=== PATIENT | male | born 1945 | race Caucasian/White ===

== ENCOUNTER 2023-05-06 08:04 | Outpatient (CLI) | payer MEDICARE, BC, SELFPAY ==
--- NOTE | 2023-05-06 08:15 | MR_ITS ---
[address] [address] Phone:?[phone] Fax:?[phone] Referring Physician Information: Licha Jerome [address] [facility] [address] Phone:?[phone] Fax:?[phone] Patient:Ajit Jackson D.O.B:?1945 Sex:?Male Phone:?[phone] [facility] MRN:?[id number] Exam Date:?05/06/2023 EXAM: MRI of the RIGHT SHOULDER, without contrast CLINICAL INFORMATION: Male, 77 years old, with right shoulder pain after a fall. INDICATION: Evaluate for rotator cuff tear. PRIOR SURGERY: None reported. PLAIN FILMS: Shoulder radiographs dated 04/27/2023. COMPARISONS: No prior MRIs available. TECHNICAL INFORMATION: Using a 1.5T MR scanner and a localizing surface coil: coronal obliques: PD, T2, STIR sagittal obliques: PD, T2 axials: PD, T2 SEDATION: None CONTRAST: None FINDINGS: Bones: Proximal humerus: No fracture or marrow edema/pathology. No humeral Hill-Sachs or reverse Hill-Sachs lesion/impaction or contusion. Glenoid: No fracture or marrow edema/pathology. No osseous Bankart lesion. Rotator cuff and muscles/tendons: Supraspinatus: Full width, full-thickness tear of supraspinatus, tendon retraction to the mid humeral head and grade 2 muscle atrophy. Infraspinatus: Full width, full-thickness tear of infraspinatus, with 1.5 cm of tendon retraction and grade 1 muscle atrophy. Teres minor: Moderate edema-like signal is present within the superior aspect of the teres minor muscle belly, without muscle tear (sagittal T2 series 8 image 24). Subscapularis: Mild to moderate tendinopathy of the superior distal subscapularis, without tendon tear or muscle atrophy. Deltoid: No strain or atrophy. Coracoacromial arch: Acromion morphology: The acromion has type II morphology. No discrete subacromial osseous spur or os acromiale. Acromiohumeral space: The acromiohumeral space is within normal limits. Coracohumeral space: The coracohumeral space is within normal limits. Acromioclavicular joint: Joint: Moderate AC joint arthropathy, with 5 mm of inferior osteophytosis that effaces the underlying supraspinatus. Ligaments: Coracoclavicular ligaments are intact. Bursae: Subacromial-subdeltoid: Mild-moderate subacromial-subdeltoid bursitis. Subcoracoid: No convincing subcoracoid bursal thickening/bursitis. Biceps tendon: The long head of the biceps tendon is present within the bicipital groove. Marked tendinopathy and high-grade tearing of the intra- articular biceps long head tendon (sagittal PD series 7 images 12-19). Glenohumeral joint: Effusion/cyst: Mild glenohumeral joint effusion. Articular cartilage: Humeral head: Moderate thinning of the articular cartilage is present throughout the medial aspect of the humeral head with mild inferomedial marginal osteophytosis. Glenoid: Mild to moderate thinning of the glenoid articular cartilage, with minimal marginal osteophytosis. Loose bodies: No discrete intra-articular body within the joint. Labrum:?Circumferential degeneration and poorly defined fraying/tearing of the labrum, which is of doubtful clinical significance. Inferior glenohumeral ligament/axillary pouch:?Intact. The axillary pouch is normal in thickness and signal. No evidence of adhesive capsulitis or capsular injury. IMPRESSION: 1. Full-width, full-thickness tear of supraspinatus, with tendon retraction to the mid humeral head and grade 2 muscle atrophy. 2. Full width, full-thickness tear of infraspinatus, with 1.5 cm of tendon retraction and grade 1 muscle atrophy. 3. Marked tendinopathy and high-grade tearing of the intra-articular biceps long head tendon. 4. Mild-moderate subscapularis tendinopathy and a grade 1 strain of the teres minor muscle belly, without tear. 5. Mild osteoarthritis of the glenohumeral joint with a mild joint effusion. 6. Mild narrowing of the acromiohumeral space with mild/moderate subacromial- subdeltoid bursitis. Additionally, inferior osteophytosis from moderate AC joint arthropathy effaces the underlying supraspinatus. 7. Circumferential degeneration and poorly defined fraying/tearing of the labrum, which is of doubtful clinical significance. BC Electronically signed on 05/07/2023 9:35:00 AM by Lito Timmons M.D.
== END 2023-05-06 08:05 | disposition home or self-care (01) ==
LOC: MRI 08:06
PROVIDERS: PCP Family Medicine; Visit Provider Physician Assistant
DX: M25.511 Pain in right shoulder (principal); M75.101 Unspecified rotator cuff tear or rupture of right shoulder, not specified as traumatic; M19.011 Primary osteoarthritis, right shoulder; M25.411 Effusion, right shoulder; M75.51 Bursitis of right shoulder; S43.431A Superior glenoid labrum lesion of right shoulder, initial encounter
CPT/HCPCS: 73221

== ENCOUNTER 2023-05-25 09:00 | Outpatient (RCR) | payer MEDICARE, BC, SELFPAY ==
--- NOTE | 2023-05-12 07:28 | PT.OPEX ---
PT [facility] Eval PT [facility] Outpatient Eval Start: 05/11/23 08:15 Freq: Status: Active Protocol: Document 05/11/23 10:05 CRP (Rec: 05/11/23 15:36 CRP [id number]) E-signed By Ventura Littlejohn PT Physical Therapy Outpatient Evaluation Insurance Information Recert Due Date 08/09/23 Insurance Name Medicare B Medical Diagnosis Greater Trochanteric bursitis of the Right hip R shoulder pain Treating Diagnosis R hip pain Decreased R hip ROM R hip weakness R shoulder pain R shoulder loss of motion R shoulder weakness Subjective Subjective About 2 weeks ago the pt fell and landed on his R shoulder. Immediate severe R shoulder pain and loss of motion with some bruising. ROM was very limited. Maybe a little return of motion but still significantly limited. Sleep is limited as it's hard to find a comfortable position and he will wake with. Unable to use R UE for any normal daily function because he cannot lift the arm and there is sharp pain. Pt also co R lateral hip pain that started building about 8 weeks ago. No known reason for pain. Pain has gotten worse with time and he will limp. Going up and down steps is limited to one step at a time. Pain will radiate into the R thigh and go to the ankle. No numbness or tingling. Ankle pain with this is more within the last week. No LBP. Pain Comments 01/17 Current Work Status Retired Objective Range of Motion Shoulder AROM Flex 15 deg with pain Unable to raise into abduction Shoulder PROM Flex 95 ABd 80 ER WNL IR pain at 75 deg Trunk ROM Flex WNL Ext only to neutral at the lumbar spine Bilat SB min/mod dec BIlat rot min/mod dec Hip ROM L WNL R flex 100 ER 40 deg IR 8 deg Strength Poor core strength with trunk flex and ext Hip MMT Flex R 4-/5 Abd R 3+/5 Ext 4-/5 Palpation Palpable pain R lateral hip around greater trochanter and gluteus med and min Balance & Gait Shows antalgic gait on the R Other/Pertinent Objective ER de-rotation test painful SAAD painful lateral R hip Assessment Assessment/Impression Pt presents to the clinic with signs and sxs consistent with R shoulder rotator cuff tear and R hip greater trochanteric pain syndrome. Pts presentation is characterized by underlying issues of decreased trunk ROM, trunk weakness and loss of hip ROM. Skilled PT is necessary to incorporate ther ex, nm kenny, manual therapy and pt education to focus on improved strength and mobility of R hip with decreased pain. PT will wait on Drs appt with R shoulder to determine further plans in regards to treatment. Plan of Care Rehabilitation Potential Good Physical Therapy Goals 1. Pt will be independent with HEP in 6 weeks. 2. Pt will don doff clothing without c.o R shoulder pain in 12 weeks 3. Pt will walk without a limp or pain for exercise x 15 min in 12 weeks. Coordination/Communication With Referral Source Treatment Plan/Direct Interventions Gait Training,Joint Mobilization,Manual Therapy, Neuromuscular Re-ed,Self-Care/ Home Management,Therapeutic Activities,Therapeutic Exercises Frequency/Duration 1-2x/wk for 12 weeks Patient Will Be Discharged From Therapy Completion of LTG(s),Skills Plateau,Independent w/HEP, Independently Progressing Evaluation Billing Untimed Code Treatment Minutes 30 Complexity High Certification Information Initial Certification Date 05/11/23 Ending Certification Date 08/09/23 Provider Signature Shows Agreement With POC & Medical Necessity Physician Signature & Date Requested Please Sign/Date Here Physician Comment/Change : Physician NPI Number #
== END 2023-09-22 23:59 | disposition home or self-care (01) ==
PROVIDERS: PCP Family Medicine; Visit Provider Physician Assistant
DX: M70.61 Trochanteric bursitis, right hip (principal); M25.511 Pain in right shoulder; Z51.89 Encounter for other specified aftercare
CPT/HCPCS: 97110; 97140; 97163

== ENCOUNTER 2023-05-26 07:00 | Day surgery (SDC) | payer MEDICARE, BC, SELFPAY ==
[2023-05-26] VITALS (31 sets, daily range): BP systolic 99–164; BP diastolic 46–94; PULSE 7–88; RESP 12–20; TEMP 35.8–36.4; O2SAT 88–99; BMI 27.7
[2023-05-26] MEDS: ACETAMINOPHEN 500 MG TABLET 1000 MG PO (07:38)
[2023-05-26] MEDS: OXYCODONE (CR) 10 MG TAB.ER.12H PO (07:39)
[2023-05-26] MEDS: CELECOXIB 200 MG CAPSULE PO (07:39)
[2023-05-26] MEDS: SODIUM CHLORIDE 0.9 % (FLUSH) 10 ML SYRINGE IVF (07:48)
[2023-05-26] MEDS: LACTATED RINGERS 1000 ML 1,000 ML 100 ML IV ×2 (07:48→09:59)
[2023-05-26] MEDS: fentaNYL 100 MCG/2 ML inj IVP (08:03)
[2023-05-26] MEDS: MIDAZOLAM HCL 1 MG/ML inj IVP (08:03)
--- NOTE | 2023-05-26 08:16 | SUR.PREOP ---
TIME?OUT:?0803 PT/RN/MDA?VERIFICATION?OF?SURGICAL?SITE,?PROCEDURE,?AND?CONSENT OBTAINED?PRIOR?TO?INVASIVE?PROCEDURE.
--- NOTE | 2023-05-26 08:44 | P.NB_ITS ---
Nerve Block Nerve Block Time Seen by Provider: 08:09 Date Seen: 05/26/23 Type of block requested by surgeon for post-operative analgesia: supraclavicular Side: right Time out performed: Yes Verification of patient name: Yes Verification of date of : Yes Site marking: site marked Name of person performing procedure: Chris Continuous monitoring Was continuous monitoring of O2 sat, B/P, night shift manager, recorded every 15 minutes?: Yes Procedure Checklist: sterile prep, needles and gloves Ultrasound guided. Images saved: Yes Medications given in 5ml increments after negative aspiration: Ropivicaine %: 0.5 mL: 20 Needle gauge: 22 Decadron (mg): 10 Precedex (mcg): 25 Patient tolerated procedure well: Yes Block Charges Block Charge (with Pro Fee): Brachial Plexus Use of Ultrasound Machine for Block: Yes- US Guidance/pain block
--- NOTE | 2023-05-26 08:44 | W.ANESCHARGE ---
Anesthesia Charges Start Date/Time Anesthesia Start Date: 05/26/23 Anesthesia Start Time: 09:02 Stop Date/Time Anesthesia Stop Date: 05/26/23 Anesthesia Stop Time: 12:07 Summary Extremes of Age - Over 70 or under 1: MDA
[2023-05-26] MEDS: CEFAZOLIN 2 GM INJ IVP (09:11)
[2023-05-26] MEDS: EPINEPHrine 1 MG in SODIUM CHLORIDE IRRIG SOLUTION 3,000 ML 9003 MG IRRIGATION ×4 (09:37→10:19)
--- NOTE | 2023-05-26 12:08 | W.ANESCHARGE ---
Anesthesia Charges Start Date/Time Anesthesia Start Date: 05/26/23 Anesthesia Start Time: 09:02 Stop Date/Time Anesthesia Stop Date: 05/26/23 Anesthesia Stop Time: 12:07
[2023-05-26] MEDS: METOCLOPRAMIDE HCL 5 MG/ML INJ 10 MG IVP (12:22)
--- NOTE | 2023-05-26 12:58 | SUR.PHASEII ---
Upon arriving from PACU, pt states he needs to urinate. Ambulated to BR with SBA. Tolerated activity without difficulty. Pt unable to void. States he feels like he needs to go but can't. Pt states he feels groggy. Sitting up in chair. in room. Right arm in sling and supported with a pillow.
--- NOTE | 2023-05-26 13:36 | PM.ORPRC ---
Procedure Note Date of procedure: 05/26/23 Procedure: PREOPERATIVE DIAGNOSIS: Right shoulder rotator cuff tear, AC joint arthrosis, biceps tendinopathy POSTOPERATIVE DIAGNOSIS: Right shoulder rotator cuff tear, AC joint arthrosis, biceps tendinopathy NAME OF OPERATION: Right shoulder arthroscopic subacromial decompression, distal clavicle excision, mini open rotator cuff repair, biceps tenodesis SURGEON: Nacho Webster MD NUCLEAR MONITORING TECHNICIAN: LORRIE Dawson ANESTHESIA: Supraclavicular block plus general endotracheal ESTIMATED BLOOD LOSS: 5 mL COMPLICATIONS: None SPECIMENS: None DRAINS: None PREOPERATIVE ANTIBIOTICS: Ancef 2 grams INDICATIONS: The patient is a 77-year-old with a history of right shoulder pain secondary to the above diagnoses. Despite appropriate non operative management, they continue to have symptoms. Operative intervention was recommended. The risks, benefits and expected outcomes were discussed in detail. These included but were not limited to: Infection, bleeding, injury to blood vessel or nerve, venous thromboembolism. All questions were answered to their satisfaction. PROCEDURE: A supraclavicular block was placed by Anesthesia. General anesthesia was administered. The patient was placed in the high beach chair position. The right shoulder was prepped and draped in the usual sterile fashion. The glenohumeral joint was infiltrated with 20 mL of normal saline with epinephrine. The posterior portal was established, the arthroscope was introduced. The anterior portal was established, Diagnostic arthroscopy was performed with findings as follows: The biceps has a marked amount of intra-articular tendinopathy. The anterior, posterior and superior labrum shows age-appropriate degenerative fraying. Articular surfaces on the humeral head and glenoid are normal. There are no loose bodies. There is a massive and retracted tear of the supra and infraspinatus. The biceps was tenotomized with the arthroscopic scissors. The stump was debrided with the shaver. The arthroscope was placed in the subacromial space, the lateral portal was established. The Arthrex [place] was used to dissect the acromion free. The CA ligament was recessed off the anterior acromion, the AC joint was exposed. The acromioplasty was performed with the bur in the posterior portal. The bur was then placed in the lateral portal and the lateral and anterior aspect of the acromion were resected. The undersurface of the distal clavicle was resected through the lateral portal. Finally, the bur was placed in the anterior portal and the remainder of the distal clavicle was resected for a total of 10 mm. An accessory anterolateral portal was placed. The subacromial/subdeltoid bursa was aggressively debrided. There is a full-thickness tear of the supra and infraspinatus with retraction to the glenoid rim. We placed 2 fiber links in posterior aspect of the tear. We placed 1 anteriorly, using the scorpion. It was not possible to mobilize the leading edge of the rotator cuff all the way over to its anatomic insertion. Arthroscopic instruments were removed. The accessory anterolateral portal was extended proximally and distally, subcutaneous dissection was taken with electrocautery to the deltoid. The deltoid was divided in line with its fibers. The static retractor was placed. The subacromial/subdeltoid bursa was debrided with the Lopez scissors. The greater tuberosity was debrided to punctate bleeding bone using the arthroscopic bur. A whipstitch was placed in the biceps. An inverted mattress FiberTape was placed in the upper border of the subscap. These sutures were placed in a BioComposite SwiveLock anchor just proximal to the bicipital groove, securing the subscap and the biceps tenodesis. Three Arthrex BioComposite SwiveLock anchors were placed just off the articular surface. Both limbs of the FiberWire and fiber tape were passed using the scorpion. We placed 2 margin convergence sutures at the medial apex of the tear. These were tied over the top. We then proceeded with a lateral row of SwiveLock anchors x 2 crossing the FiberTape and incorporating the FiberWire and fiber link into each lateral row anchor. Finally, we tied the 2 central FiberWire sutures over the rotator cuff. This provides a partial repair of the rotator cuff. There is no tension on the repair with the shoulder at 0? abduction. The wound was irrigated with normal saline off the pump. The deltoid was repaired with an 0 Vicryl in an interrupted [id number] fashion. Subcutaneous tissues were closed with a 3-0 Vicryl. Skin was closed with a 3-0 Monocryl in a subcuticular fashion. A dry dressing, polar care and sling were applied. Sponge and needle counts were correct x2. The patient tolerated the procedure well. There were no apparent complications. They were carefully transferred to the hospital bed and taken to the postanesthesia care unit in satisfactory condition. PLAN: The patient will be discharged to home. No active range of motion of the shoulder will be allowed for 6 weeks postoperatively. They can work on active range of motion of the elbow, wrist and fingers. They will follow up in the office next week for a wound check and an AP and transscapular Y-view of the shoulder prior to being seen.
[2023-05-26] MEDS: ALBUTEROL SULFATE 2.5 MG/3 ML VIAL.NEB NEB (14:19)
--- NOTE | 2023-05-26 14:32 | SUR.PHASEII ---
Patients O2 Sats dropping into the 70' with mask O2. Dr. Perez aware, order to give Albuterol nebulizer and continue to monitor.
--- NOTE | 2023-05-26 15:11 | SUR.PHASEII ---
Paige Gar spoke with patient and , orders in computer to transfer to [facility] due to altered O2 status.
--- NOTE | 2023-05-26 16:24 | CRLHL7_ITS ---
For Patients: As a result of the Cures Act, medical imaging exams and procedure reports are released immediately into your electronic medical record. You may view this report before your referring provider. If you have questions, please contact your health care provider. INDICATION: Hypoxia COMPARISON: None. TECHNIQUE: 1 view chest radiograph. FINDINGS: The lungs are poorly expanded. Significantly elevated right hemidiaphragm is worse compared to prior. No pulmonary edema. No pleural effusion. No pneumothorax. No pneumomediastinum. Cardiomegaly. Ectatic descending thoracic aorta. Bones: Normal for age. IMPRESSION: Significantly elevated right hemidiaphragm is worse compared to the previous exam. Dictated by Mirna Goode MD @ 05/26/2023 5:49:14 PM (Electronically Signed)
--- NOTE | 2023-05-26 16:44 | PM.IMCN1 ---
Date of Consult Patient: Louie Patient Consult date: 05/26/23 Requesting Physician: Orthopedics Primary Care Provider: Norberto Choi MD Consult Narrative Reason for consult: Postoperative hypoxia Narrative: Adan Jackson is a 77 year old male who presented to the hospital today for an elective R shoulder arthroscopy. There were no anesthetic (had supraclavicular block) or operative complications, but patient was persistently hypoxic in the postoperative suite. Given inability to keep oxygen saturations >90% on RA, patient admitted overnight for workup/observation. When I see him in the room, he is on nonrebreather mask at 10L/min and saturations 95% or greater. Adan denies chest pain or dyspnea, no other concerns for hospitalist team. Patient's H&P reviewed, PCP is Dr. Choi. He was also seen by Cardiology prior to surgery with no concerns noted. When medically appropriate, patient will d/c home with . They live locally and are active daily. 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 Review of Systems Status of ROS: Reports: 10 or more systems reviewed and unremarkable except as noted in History and below [facility] Medical History (Updated 05/26/23 @ 17:06 by Tejal Garrett MD) Spinal stenosis ?M48.00 - Spinal stenosis, site unspecified (ICD-10) Surgical History (Updated 05/26/23 @ 17:06 by Tejal Garrett MD) History of arthroscopy of both knees ?Z98.890 - Other specified postprocedural states (ICD-10) History of carpal tunnel surgery of right wrist ?Z98.890 - Other specified postprocedural states (ICD-10) History of back surgery (~2004) ?Z98.890 - Other specified postprocedural states (ICD-10) H/O hernia repair ?Z98.890 - Other specified postprocedural states (ICD-10) ?Z87.19 - Personal history of other diseases of the digestive system (ICD-10) Status post right knee replacement (03/12/21) ?Z96.651 - Presence of right artificial knee joint (ICD-10) Family History (Updated 11/12/22 @ 11:26 by Kayleigh Cabrera ~ [facility], [facility]) Mother Stroke Brother Stroke COPD (chronic obstructive pulmonary disease) Guilantoinein Salter? 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) Narrative: current chewing tobacco Smoking Status: Never smoker Do you use any of these nicotine containing products: None Second hand tobacco smoke exposure: No How often do you have a drink containing alcohol: monthly or less Alcohol type: beer How many standard drinks containing alcohol do you have on a typical day: 1 or 2 How often do you have six or more drinks on one occasion: Never AUDIT-C Alcohol total score: 1 Non-prescribed substance use: denies use Caffeine: Yes Meds Home Medications and Allergies Home Medications Medication Instructions Recorded Confirmed Type amitriptyline 25 mg tablet 75 mg PO QHS 11/12/22 05/11/23 History aspirin 325 mg tablet,delayed mg PO BID 11/12/22 05/11/23 History release bupropion HCl 100 mg tablet,12 hr 100 mg PO QAM 11/12/22 05/11/23 History sustained-release zaleplon 10 mg capsule 10 mg PO QHS 11/12/22 05/11/23 History meloxicam 15 mg tablet mg 05/25/23 History Allergies Allergy/AdvReac Type Severity Reaction Status Date / Time ciprofloxacin Allergy Unknown Dizziness Verified 05/26/23 08:17 Exam Narrative: Exam Narrative: GEN: Alert and oriented, answering questions appropriately HEENT: EOMIs bilaterally, no scleral icterus CV: RRR, No concerning murmurs, rubs, or gallops R: No tachypnea. No concerning wheezing. Exam limited by right upper extremity sling, but air movement not notably decreased Ext: wwp, no concerning edema Skin: No concerning skin lesions or rashes on exposed skin Neuro: Nonfocal Psych: Appropriate Const: Vital Signs, click to edit/add: Vital Signs - 24 hr 05/26/23 07:45 05/26/23 08:03 05/26/23 08:10 Temperature 97.2 F L Pulse Rate 67 57 L 54 L Respiratory Rate 16 16 16 Blood Pressure 135/89 126/81 119/67 Pulse Oximetry 94 97 97 Oxygen Delivery Me thod Room Air Nasal Cannula Nasal Cannula Oxygen Flow Rate 2 2 05/26/23 08:15 05/26/23 08:20 05/26/23 08:30 Temperature Pulse Rate 51 L 50 L 50 L Respiratory Rate 16 16 16 Blood Pressure 108/69 113/87 106/62 Pulse Oximetry 98 95 95 Oxygen Delivery Me thod Nasal Cannula Nasal Cannula Nasal Cannula Oxygen Flow Rate 2 2 2 05/26/23 12:02 05/26/23 12:05 05/26/23 12:10 Temperature 96.5 F L Pulse Rate 79 75 72 Respiratory Rate 15 12 12 Blood Pressure 99/53 L 103/46 L 111/55 L Pulse Oximetry 89 94 95 Oxygen Delivery Me thod Nasal Cannula Oxygen Flow Rate 2 05/26/23 12:15 05/26/23 12:20 05/26/23 12:25 Temperature Pulse Rate 73 73 71 Respiratory Rate 14 12 14 Blood Pressure 112/89 110/56 L 114/68 Pulse Oximetry 96 96 91 Oxygen Delivery Me thod Room Air Nasal Cannula Oxygen Flow Rate 2 05/26/23 12:30 05/26/23 12:35 05/26/23 12:58 Temperature 97.2 F L 97.2 F L Pulse Rate 65 73 75 Respiratory Rate 12 14 16 Blood Pressure 113/63 107/64 109/53 L Pulse Oximetry 97 95 92 Oxygen Delivery Me thod Nasal Cannula Nasal Cannula Oxygen Flow Rate 2 2 05/26/23 13:16 05/26/23 13:39 05/26/23 13:45 Temperature Pulse Rate 7 L 80 81 Respiratory Rate 16 16 16 Blood Pressure 107/62 109/68 129/67 Pulse Oximetry 92 93 90 Oxygen Delivery Me thod Nasal Cannula Non Rebreather Mas k Oxygen Flow Rate 2 10 05/26/23 14:00 05/26/23 14:15 05/26/23 14:30 Temperature Pulse Rate 80 84 78 Respiratory Rate 16 16 16 Blood Pressure 121/57 L 130/70 117/65 Pulse Oximetry 88 93 95 Oxygen Delivery Me thod Non Rebreather Mas k Non Rebreather Mas k Non Rebreather Mas k Oxygen Flow Rate 10 10 10 05/26/23 15:00 05/26/23 15:15 05/26/23 15:30 Temperature Pulse Rate 83 80 84 Respiratory Rate 16 16 16 Blood Pressure 124/92 H 132/67 111/80 Pulse Oximetry 93 96 94 Oxygen Delivery Me thod Non Rebreather Mas k Non Rebreather Mas k Non Rebreather Mas k Oxygen Flow Rate 10 10 10 Assessment and Plan Assessment and plan (1) Traumatic complete tear of right rotator cuff: Status: Acute (2) H/O arthroscopy of shoulder: Status: Acute (3) Hypoxia: Problem comment: - likely iatrogenic, history and exam reassuring - will obtain chest x-ray - taper oxygen as tolerated Status: Acute Plan - per above - anticipate home tomorrow, pending chest x-ray findings and overnight course
[2023-05-26] MEDS: NICOTINE 2 MG LOZENGE BUCCAL (18:22)
--- NOTE | 2023-05-26 18:51 | PC.NURSE ---
Patient arrived to the floor @ 1615 after R rotator cuff repair.. Patient has feeling in his R arm.. and weak movement. Dressing is CDI... R arm in sling at all times. Upon arrival he was on 10 L via simple mask maintaining 90-93%. I titrated him down to 7 liters around 1730.. with good response of 95-97%. I then applied a nasal cannula @ 1830 @ 1.5 L with good saturation response as well @ 90-92%. Continuos pulse oximetry remains in place. The patient ate dinner and has no other symptoms at this time despite O2 requirements and weak minimal movement in R arm. He calls appropriately if needed. Up to BR SBA when needs to be unhooked from things. He is in the chair visiting with his son.
[2023-05-26] MEDS: AMITRIPTYLINE 25 MG TABLET 75 MG PO (23:14)
[2023-05-26] MEDS: HYDROCODONE-ACETAMIN 5-325 MG 1 TAB PO (23:14)
[2023-05-27 03:00] VITALS: PULSE 81; RESP 18; TEMP 36.4; O2SAT 93
[2023-05-27] MEDS: HYDROCODONE-ACETAMIN 5-325 MG 1 TAB PO ×2 (03:18→07:31)
--- NOTE | 2023-05-27 06:13 | PC.NURSE ---
End of Shift: Pt remained AO throughout shift. C/O pain in right shoulder, requested adjustments to cryocuff and [place]. No improvement noted. Pt reports feeling uncomfortable since the block began wearing off, requesting more [place] as soon as he could have it again. O2 sats remained >92% on 0.5L O2 NC. Pt moving independently in room.
[2023-05-27 07:37] VITALS: BP 132/75; PULSE 88; RESP 16; TEMP 37.2; O2SAT 92
[2023-05-27] MEDS: ACETAMINOPHEN 500 MG TABLET PO (07:45)
[2023-05-27 10:44] VITALS: O2SAT 95
--- NOTE | 2023-05-27 10:45 | RESP.RT ---
Patient arrived yesterday end of shift, on Nasal cannula 6 Lpm SaO2 82%, changed to simple mask at 10 Lpm, SaO2 92%. Respiratory rate 20/minute, breathing regular/easy, patient stated no SOB. Nursing wean Oxygen overnight to 1 Lpm maintaining SaO2 >90%. Off Oxygen this AM. Up in chair, SaO2 94-96% on room air, Patient comfortable, good color, good clear voice, cough to command, forceful/clear. BBS present with good air movement. Patient states no SOB.
== END 2023-05-27 10:45 | disposition home or self-care (01) ==
LOC: OR 11:42 → MEDSURG 16:52
PROVIDERS: PCP Family Medicine; Visit Provider Orthopaedic Surgery
PROC: (CPT 23412; principal; 2023-05-26 08:15)
DX: S46.011A Strain of muscle(s) and tendon(s) of the rotator cuff of right shoulder, initial encounter (principal); M19.011 Primary osteoarthritis, right shoulder; M75.21 Bicipital tendinitis, right shoulder; G89.18 Other acute postprocedural pain; R09.02 Hypoxemia
CPT/HCPCS: 29826; 29828; 29824; 23412; 01630; 64415; 71045; 76942; 94640; 94761; 99100; A9270; C1713; J0171; J0330; J0690; J1100; J2250; J2371; J2405; J2704; J2765; J2795; J3010; J7120

== ENCOUNTER 2023-07-27 12:47 | Outpatient (CLI) | payer MEDICARE, BC, SELFPAY | END 2023-07-27 12:48 | disposition home or self-care (01) | LOC: RAD 12:48 | PROVIDERS: PCP Family Medicine; Visit Provider Internal Medicine | DX: I44.0 Atrioventricular block, first degree (principal); I51.7 Cardiomegaly; I35.1 Nonrheumatic aortic (valve) insufficiency; Q21.12 Patent foramen ovale | CPT/HCPCS: 93306 ==

== ENCOUNTER 2023-09-15 09:00 | Outpatient (RCR) | payer MEDICARE, BC, SELFPAY ==
--- NOTE | 2023-06-19 17:00 | PT.OPEX ---
[facility] Eval PT [facility] Outpatient Eval Start: 06/19/23 16:31 Freq: Status: Active Protocol: Document 06/19/23 16:31 RICHARD (Rec: 06/19/23 16:48 BJShruthi [id number]) E-signed By Narda Flanagan DPT Physical Therapy Outpatient Evaluation Insurance Information Recert Due Date 09/17/23 Insurance Name Medicare B,Blue [employer] Medical Diagnosis s/p R shoulder scope subacromial decompression, distal clavicle excision, mini open RC repair, biceps tenodesis 05/26/23. Treating Diagnosis s/p R shoulder scope subacromial decompression, distal clavicle excision, mini open RC repair, biceps tenodesis 05/26/23 with R shoulder pain, limited R shoulder ROM, impaired R shoulder/UE mobility/strength, currently restricted in R UE sling, interrupted sleep. Subjective Subjective Patient reports having a fall with R shoulder injury back in Apr. He tore his RC and had surgery 05/26/23. States he is wearing his sling, performing elbow/wrist/hand ROM and doing some codmans exercises. Pain has been tolerable. Pain range 1-4/10. He is using ibuprofen as needed, about 3x/day. Not needing ice lately. Sleep is interrupted at times, he has been sleeping in the bed. He reports one incident were he reacted and trying to reach out with his R shoulder/UE and had increased shoulder pain but the sling prevented him from reaching out further. Follow up with OSBALDO Gibson on Jun 03 went well. He is R handed. He reports R hip pain/issues leading up to his fall with prior PT for his hip. Date of Last Physician Visit 06/03/23 Date of Surgery (If applicable) 05/26/23 Current Work Status Retired Assessment Assessment/Impression Patient is a 77 year old male s/p R shoulder scope subacromial decompression, distal clavicle excision, mini open RC repair, biceps tenodesis 05/26/23 with R shoulder pain, limited R shoulder ROM, impaired R shoulder/UE mobility/strength, currently restricted in R UE sling, interrupted sleep. Pain range 1-4/10. He is using ibuprofen as needed. Reports accidently reacting to reach with R UE once and having increased pain but he was wearing his sling to prevent him from using R shoulder/UE. Per PT order, no AROM x 6 weeks. Patient can perform AROM elbow, wrist, hand. He has been doing elbow /wrist/hand ROM, some codmans. He is wearing his sling as ordered. Hasn't been needing ice lately. Able to initiate R shoulder PROM this session, tolerated well with oscillation and VC for relaxation. R shoulder PROM: Flex 90 degrees, abd 80 degrees, IR 55 degrees, ER 20 degrees. Patient would benefit from skilled PT for pain/sx management, improved R shoulder ROM, improved R shoulder mobility/strength, return to functional use of R shoulder/UE, and establishment of HEP. Plan of Care Rehabilitation Potential Good Physical Therapy Goals 1. Decrease R shoulder pain to less than/equal to 3/10 with daily activities and with the progression of PT activities over the next 6-8 weeks. 2. Improve R shoulder PROM over the next 6-8 weeks to prepare for return to functional use of R shoulder/UE. 3. Improve R shoulder AROM over the next 8-10 weeks for return to functional use of R shoulder/ UE with daily activities. 4. Improve R shoulder/UE strength over the next 10-12 weeks for return to full functional use of R shoulder/UE with daily activities. 5. Patient will be I with HEP within 12 weeks for progression toward above goals, ongoing self management of pain/sx, ongoing self improvements in ROM/strength/function, and for return to full functional use of R shoulder/UE with daily activities. Coordination/Communication With Referral Source Treatment Plan/Direct Interventions Manual Therapy,Therapeutic Exercises Frequency/Duration 2x/week Patient Will Be Discharged From Therapy Completion of LTG(s),Skills Plateau,Independent w/HEP, Independently Progressing Evaluation Billing Untimed Code Treatment Minutes 22 Complexity Moderate Certification Information Initial Certification Date 06/19/23 Ending Certification Date 09/17/23 Provider Signature Shows Agreement With POC & Medical Necessity Physician Signature & Date Requested Please Sign/Date Here Physician Comment/Change : Physician NPI Number #
== END 2024-01-13 23:59 | disposition home or self-care (01) ==
PROVIDERS: PCP Family Medicine; Visit Provider Physician Assistant
DX: Z98.890 Other specified postprocedural states (principal); Z51.89 Encounter for other specified aftercare
CPT/HCPCS: 97110; 97162

== ENCOUNTER 2024-02-09 07:41 | Emergency (ER) | payer MEDICARE, BC, SELFPAY ==
[2024-02-09] VITALS (8 sets, daily range): BP systolic 148–150; BP diastolic 86–94; PULSE 57–58; RESP 18; TEMP 36.2; O2SAT 93–96; BMI 27.6
--- NOTE | 2024-02-09 07:51 | CRLHL7_ITS ---
For Patients: As a result of the Century Cures Act, medical imaging exams and procedure reports are released immediately into your electronic medical record. You may view this report before your referring provider. If you have questions, please contact your health care provider. Indication: New onset balance issues. Technique: Noncontrast CT of head was performed. Comparison: None available. Findings: Brain parenchyma: Normal parish-white matter differentiation. Mild prominence of the convexity sulci and periventricular white matter hypodensities in keeping with chronic microvascular change and age related volume loss. No acute intraparenchymal hemorrhage. No mass effect or midline shift. Extra-axial spaces: No extra-axial collection. Ventricular system: Unremarkable for age. Paranasal sinuses and mastoid air cells: Clear. Orbits: Unremarkable. Bones: No calvarial fracture. Impression: 1. No acute intracranial abnormality identified. 2. Mild cerebral volume loss and findings suggestive of chronic small vessel ischemic change. Please note that all CT scans at this facility use dose modulation, iterative reconstruction, and/or weight-based dosing when appropriate to reduce radiation dose to as low as reasonably achievable. Dictated by Elizabeth Gaytan MD @ 02/09/2024 8:19:16 AM (Electronically Signed)
--- NOTE | 2024-02-09 08:34 | CRLHL7_ITS ---
For Patients: As a result of the Century Cures Act, medical imaging exams and procedure reports are released immediately into your electronic medical record. You may view this report before your referring provider. If you have questions, please contact your health care provider. Indication: Vertigo Technique: Multiplanar, multisequence MRI of the brain obtained without contrast. Comparison: CT head from earlier same day Findings: There is artifact from patient motion, degrading image quality. The ventricles and cortical sulci are slightly prominent, compatible with generalized cerebral volume loss. No evidence of recent infarct or hemorrhage. No midline shift, hydrocephalus or herniation. Scattered FLAIR hyperintense foci throughout the supratentorial white matter, typical of chronic microangiopathy. No concerning susceptibility identified given artifact limitations. Midline structures are unremarkable. Major expected intracranial flow voids are visualized. No suspicious bone marrow lesion. No obstructive paranasal sinus disease. Trace nonspecific fluid at the left mastoid tip. Bilateral lens implants. Impression: 1. No evidence of acute intracranial abnormality. 2. Mild generalized cerebral volume loss, and mild chronic microangiopathy changes. Dictated by Venus Rehman MD @ 02/09/2024 12:12:29 PM (Electronically Signed)
--- OUTSIDE RECORDS SUMMARY | 2024-02-09 08:39 | XMS_ITS | Clinical Summary ---
Author Organization [facility] Address [place], [place] [address] Care Team Providers Care Utility Agent Name Role Phone Norberto Choi MD Primary Care Provider [phone] Allergies Active Allergy Reactions Criticality Noted Date Comments Ciprofloxacin GI Upset,Vestibular Toxicity Medium 09/10 Dizziness Codeine *Unknown 05/14/2023 Medications Medication Sig Dispensed Refills Start Date End Date Status aspirin 325 mg tabletIndications:H istory of TIA (transient ischemic attack),PFO (patent foramen ovale) Take 2 Tablets (650 mg) by mouth once daily. 0 10/17/2021 Active Additional Information Patient taking differently: 325 mgOralTWICE DAILY WITH MEALS, Reported on 10/28/2023 polyethylene glycoL (MIRALAX) 17 gram/dose powderIndications:O ther constipation Use 1 tsp daily 0 10/17/2021 Ac tive buPROPion (WELLBUTRIN SR) 100 mg Sustained-Release tabletIndications:D ysthymia TAKE 1 TABLET EVERY MORNING 90 Tablet 1 12/08/2023 Active zaleplon (SONATA) 10 mg capsuleIndications: Other insomnia TAKE 1 CAPSULE AT BEDTIME IF NEEDED FOR SLEEP 90 Capsule 3 12/08/2023 Active amitriptyline (ELAVIL) 25 mg tabletIndications:D ysthymia,Other insomnia TAKE 3 TABLETS AT BEDTIME 270 Tablet 1 12/08/2023 Active Active Problems Problem Noted Date Diagnosed Date Status post right knee replacement 05/13/2023 Other insomnia 09/22/2018 Overview: As of 10/28/2023 Adan reports he has been on Sonata for 10 years. If he has to go off this medication, we will taper him off it slowly. Dysthymia 09/22/2018 Asbestos exposure 09/22/2018 Diverticulosis of large intestine without hemorr virgil 09/22/2018 Adenomatous polyp of ascending colon 09/22/2018 Overview: Due for colonoscopy summer 2018 Colonoscopy 08/2019 3 polyps, repeat in 3 years, PEG 8L Colonoscopy 01/2023 2-TA, repeat in 5 years, PEG 8L Family history of colon cancer 09/22/2018 Overview: Mother and brothers History of BPH 09/22/2018 History of TIA (transient ischemic attack) 09/22 Overview: Occurred in 2004 On aspirin 325 twice daily per [employer] in [place] PFO (patent foramen ovale) 09/22/2018 Depressive disorder 12/27/2007 Overview: Depressive disorder, not elsewhere classified ([facility]) Encounters Date Type Department Care Team Description 12/07/2023 Refill [facility] [address] [place] [address] Norberto Choi MD Refill Request (Bupropion, Zaleplon, Amitriptyline) from Last 3 Months Immunizations Name Administration Dates Next Due AMB INFLUENZA IIV3 (AGE 65+ YRS) PF (Flu Clinic Only) 05/21/2018 AMB Influenza, IIV4 PF (=>6 mos Flulaval,Fluzone Fluarix)(Flu Clinic Only) 05/18/2019 Amb Influenza, Inactivated A IIV4 (Age 65+ Years) Preserv Free 04/25/2023,05/03/2020 COVID-19 vaccine ([employer] 30mcg/0.3mL) 12YO+ BIVALENT PF, MDV 05/13/2022 COVID-19 vaccine (BlueStacks NTech 30mcg/0.3mL) PF, MDV 05/04/2021,10/24/2020,10/03/2020 Hepatitis A (Adult) 11/07/1997,09/07/1996 Influenza Virus, Unspecified 05/02/2013 Influenza, High-dose Inactivated 017,05/02/2016,05/10/2015,05/12 Influenza, High-dose Quadriv alent Inactivated 05/02/2023,05/13/2022,06/28/2021 Influenza, IIV3 (Age 6-35 mos) 05/10/2008 Influenza, IIV3 (Age >=3 years) 05/01/20 11,06/10/2007,05/21/2006,07/02 Influenza, IIV4 (=>6mos) MDV 05/02/2013 Influenza, Inactivated AIIV4 (Age 65+ Years) Preserv Free 05/13/2022,06/28/2021 Pneumococcal Poly,23-Valent (Pneumovax) 02/05/2012,07/09/2006 Pneumococcal conj 13-Valent (Prevnar 13) 01/02/2015 RSV, Recombinant ADJ Reconst ituted (Arexvy 120MCG/0.5mL) 05/02/2023 Td, Preservative Free (age >= 7 Years) 4 Tdap 10/20/2023,02/07/2013 Zoster (Shingrix-RZV, recombinant) 11/23/2018, Zoster (Zostavax-ZVL, live) 02/05/2012 Family History Medical History Relation Name Comments Cancer Brother 1 Barry colon and pancr eatic cancer Cancer-pancreatic Brother 1 Barry of th is at 52 Heart attack Brother 2 Hiram of this at 74 Cancer Brother 3 Tanvir myelodysplasia of this at 73 Cancer Brother 4 Ryan Cancer-pancreatic Brother 5 Philipp of th is at 30 Other Father at 42 -bra in tumor Cancer Mother colon cancer Seizures Mother of sz at 8 1 Dementia Sister Marii Hiatal hernia Sister Marii complications from surgery Relation Name Status Comments Brother 1 Barry Brother 2 Hiram Brother 3 Tanvir Brother 4 Ryan Alive Brother 5 Philipp Brother 6 Armond Alive Father Mother Sister Marii Alive Social History Tobacco Use Types Packs/Day Years Used Date Smoking Tobacco: Never Smokeless Tobacco: Current Snuff Tobacco Cessation:Ready to Q uit: No; Counseling Given: No Alcohol Use Standard Drinks/Week Comments Not Currently 17 (1 standard drink = 0.6 oz pu re alcohol) 2-3 beers daily PHQ-2 Answer Date Recorded PHQ-2 TOTAL SCORE 0 10/28/2023 Social Connections Answer Date Recorded Frequency of Communication with Friends and Fami ly Not on file 04/10/2023 Alcohol Use Answer Date Recorded How often do you have a drink containing alcohol ? 4 10/28/2023 How many drinks containing a lcohol do you have on a typical day when you are drinking? 0 10/28/2023 How often do you have five or more drinks on one occasion? 0 10/28/2023 Financial Resource Strain Answer Date R ecorded Difficulty of Paying Living Expenses 3 04/09/2022 Difficulty of Paying Living Expenses Not on file 04/09/2022 Food Insecurity Answer Date Recorded Worried About Running Out of Food in the Last Ye ar 1 04/09/2022 Transportation Needs Answer Date Record ed Lack of Transportation (Medical) 1 04/09/2022 Housing Stability Answer Date Recorded Unable to Pay for Housing in the Last Year 1 04/09/2022 Sex and Gender Information Value Date Recorded Sex Assigned at Not on file Gender Identity Not on file Sexual Orientation Not on file Obstetrics History Last Filed Vital Signs Vital Sign Reading Time Taken Comments Blood Pressure 125/71 10/28/2023 1:08 PM CDT Pulse 73 10/28/2023 1:08 PM CDT Temperature 36.5 ??C (97.7 ??F) 03/06/2023 3:37 PM CD T Respiratory Rate 16 05/14/2023 12:5 5 PM CDT Oxygen Saturation 94% 10/28/2023 1:08 PM CDT Inhaled Oxygen Concentration - - Weight 98.8 kg (217 lb 12.8 oz) 10/28/2023 1:08 PM CDT Height 181.1 cm (5' 11.3) 10/28/2023 1:08 PM CD T Body Mass Index 30.12 10/28/2023 1:08 PM CDT Plan of Treatment Health Maintenance Due Date Last Done Comments COVID-19 vaccine series ( season) 2023 05/20/2023, 05/13/2022, 01/14/2022, Additional history exists Influenza for age 65+ 04/10/2024 05/02/2023 , 04/25/2023, 05/13/2022, Additional history exists BMI (ht and wt on same day) for age 18+ 10/27/2024 10/28/2023, 05/19/2023, 10/24/2022, Additional history exists Depression screening for age 12+ 10/27/2024 10/28/2023, 10/24/2022, 10/24/2022, Additional history exists Medicare Wellness for age 65+ 10/28/2024, 10/24/2022, 10/17/2021, Additional history exists Tetanus booster 10/19/2033 10/20/2023, 07/0 08/2012, 12/14/2003 Pneumococcal series for age 65+ Completed 01/02/2015, 02/05/2012, 07/09/2006 Zoster (shingles) series for age 50+ Completed 11/23/2018, 05/25/2018, 02/05/2012 Hepatitis C screening for ag e 18-79 Completed 09/27/2019 Tdap Completed 10/20/2023, 02/07/2013 Procedures Procedure Name Priority Date/Time Associated Diagnosis Comments ANTI HCV Routine 09/27/2019 11:39 AM GIFT SHOP MANAGER Need for hepatitis C screening test from Last 3 Months or Most Recently Relevant to Health Maintenance Results * ANTI HCV (09/27/2019 11:39 AM GIFT SHOP MANAGER) HEPATITIS C ANTIBODY Non-React heriberto Non-React heriberto 09/27/2019 6:18 PM GIFT SHOP MANAGER [facility] Comment:Antibodies to HCV no t detected; does not exclude the possibility of exposure to HCV. Blood BLOOD SPECIMEN / Unknown Venipuncture / Unknown 09/27/2019 11:39 AM GIFT SHOP MANAGER 09/27/2019 11:40 AM GIFT SHOP MANAGER Rigo Mazariegos MD [facility] [address] [place] [address], [place] from Last 3 Months or Most Recently Relevant to Health Maintenance Care Teams Utility Agent Relationship Specialty Start Date End Date Norberto Choi MD [address] [place] [address] PCP - General Family Practice 10/24/22
[2024-02-09] MEDS: LORazepam 2 MG/ML inj 1 MG IVP (08:45)
[2024-02-09] MEDS: MECLIZINE HCL 25 MG TABLET PO (08:45)
--- NOTE | 2024-02-09 08:51 | ED_ITS ---
HPI - General Adult General Date Seen: 02/09/24 Chief complaint: Neuro Symptoms/Altered Deficit Stated complaint: balance is off Time Seen by Provider: 02/09/24 08:17 Source: patient Mode of arrival: ambulatory Limitations: no limitations History of Present Illness HPI narrative: Patient is a 78-year-old male who presents for evaluation of feeling off balance. He said this happened yesterday but it was ?gone as fast as it arrived. This morning, he woke up, sat up in bed and noted that he felt like things were spinning. When he tried to walk it felt like he was off-balance. He has a little bit of pressure sensation in the base of his skull posteriorly. He denies any recent significant or minor trauma to his head or neck. He has a remote history of stroke 20 years ago which he relates to a patent foramen ovale. He does not have a history of atrial fibrillation. Review of his records shows that he does have mild aortic aneurysm at the root and arch of the aorta at around 4 cm. He denies any chest pain, back pain difficulty breathing. He does not have any other neurologic complaints such as difficulties with speech, vision strength. He has not had any falls and does not have significant nausea. He does not smoke. He takes a full-size aspirin twice a day. No other anticoagulation. Medications otherwise reviewed. Related Data Home Medications ?Medication ?Instructions ?Recorded ?Confirmed amitriptyline 25 mg tablet 75 mg PO QHS 11/12/22 08/12/23 aspirin 325 mg tablet,delayed mg PO BID 11/12/22 08/12/23 release bupropion HCl 100 mg tablet,12 hr 100 mg PO QAM 11/12/22 08/12/23 sustained-release zaleplon 10 mg capsule 10 mg PO QHS 11/12/22 08/12/23 Previous Rx's ?Medication ?Instructions ?Recorded meclizine 25 mg tablet 25 mg PO TID #15 tabs 02/09/24 Allergies Allergy/AdvReac Type Severity Reaction Status Date / Time ciprofloxacin Allergy Unknown Dizziness Verified 08/12/23 10:35 Review of Systems Status of ROS: Reports: 10 or more systems reviewed and unremarkable except as noted in History and below [facility] Medical History Spinal stenosis ?M48.00 - Spinal stenosis, site unspecified (ICD-10) Surgical History Status post right rotator cuff repair (05/26/23) ?Z98.890 - Other specified postprocedural states (ICD-10) History of arthroscopy of both knees ?Z98.890 - Other specified postprocedural states (ICD-10) History of carpal tunnel surgery of right wrist ?Z98.890 - Other specified postprocedural states (ICD-10) History of back surgery (~2004) ?Z98.890 - Other specified postprocedural states (ICD-10) H/O hernia repair ?Z98.890 - Other specified postprocedural states (ICD-10) ?Z87.19 - Personal history of other diseases of the digestive system (ICD-10) 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 syndrome Social History Narrative: current chewing tobacco Smoking Status: Never smoker Do you use any of these nicotine containing products: None Second hand tobacco smoke exposure: No How often do you have a drink containing alcohol: monthly or less Alcohol type: beer How many standard drinks containing alcohol do you have on a typical day: 1 or 2 How often do you have six or more drinks on one occasion: Never AUDIT-C Alcohol total score: 1 Non-prescribed substance use: denies use Caffeine: Yes Exam Narrative: Exam Narrative: Vital signs as noted above. In general, an alert, well-appearing patient. Head: Normocephalic, atraumatic. Eyes: Pupils are equal reactive. Extraocular movements are full. Mild horizontal nystagmus on gaze. Conjunctivae are normal. ENT: Mucous membranes are moist. Throat is normal. Tongue is midline. Neck: Supple without lymphadenopathy. Nontender to palpation. Heart: Mildly bradycardic, regular. No murmur or rub. Lungs: Clear bilaterally. No increased work of breathing, crackles or wheezes. Abdomen: Soft and nontender. No organomegaly. Extremities: Well perfused. No edema. No calf tenderness. Pulses intact. Neurologic: Patient is alert and oriented to person and place. Speech is fluent. Face is symmetric. Moves all extremities equally. Cerebellar function is intact by finger-nose testing and heel-evans testing. Affect: Normal. Skin: Warm and dry. Well perfused. Const: Vital Signs, click to edit/add: Vital Signs - 24 hr 02/09/24 07:53 02/09/24 08:03 02/09/24 08:17 Temperature 97.2 F L Pulse Rate [Pulse Oximeter] 58 L Respiratory Rate 18 Blood Pressure [Ri ght Upper Arm] 148/86 H Pulse Oximetry 94 96 95 Oxygen Delivery Me thod Room Air 02/09/24 08:20 02/09/24 08:45 02/09/24 08:50 Temperature Pulse Rate [Pulse Oximeter] Respiratory Rate Blood Pressure [Ri ght Upper Arm] Pulse Oximetry 93 94 95 Oxygen Delivery Me thod 02/09/24 09:00 02/09/24 12:32 Temperature Pulse Rate [Pulse Oximeter] 57 L Respiratory Rate 18 Blood Pressure [Ri ght Upper Arm] 150/94 H Pulse Oximetry 93 95 Oxygen Delivery Me thod Room Air Documenting provider has reviewed patient's vital signs: yes Course Course ED Course: Patient presents with vertigo and a sense of imbalance without objective findings of ataxia. On arrival, he had a CT without contrast of his head which by my review did not show any acute findings such as hemorrhage or obvious mass effect. Final radiology read is negative aside from probable mild chronic micro vascular ischemia. Given his age, I did recommend MRI to rule out ischemic stroke or less likely vertebral artery dissection. He says he has difficulty with claustrophobia so will pre treat with some Ativan Patient had an EKG which shows a sinus bradycardia, ventricular rate of 53. No acute ST segment changes. CBC and metabolic panel are notable for a mildly depressed white blood cell count of 4, hemoglobin is normal, metabolic panel is unremarkable. He went on to have an MRI of the brain, there is some degradation from movement but overall read as unremarkable by Radiology, no evidence of ischemia or mass. The CT scanner was down for part of his visit but was available again I elected to do CT angiogram to evaluate the vasculature, as patient does not tolerate MRI very well. CT angiogram read as negative for stenosis or dissection by Radiology. He feels improved after medications. Have reviewed with him that symptoms are most likely related to his inner ear and should resolve with time. We discussed options if this is not the case such as physical therapy. Would encourage primary care follow-up if not improving over the next few days. I prescribed meclizine. He declines need for anything for nausea or vomiting. Return any time for acute worsening or new symptoms. Vital Signs Vital signs: Initial Vital Signs Temperature 97.2 F L 02/09/24 07:53 Temperature Source Temporal Artery Scan 02/09/24 07:53 Pulse Rate 58 L 02/09/24 07:53 Respiratory Rate 18 02/09/24 07:53 Blood Pressure 148/86 H 02/09/24 07:53 Blood Pressure Mean 106 H 02/09/24 07:53 Pulse Oximetry 94 02/09/24 07:53 Oxygen Delivery Method Room Air 02/09/24 07:53 Vital Signs Temperature 97.2 F L 02/09/24 07:53 Pulse Rate 58 L 02/09/24 07:53 Respiratory Rate 18 02/09/24 07:53 Blood Pressure 148/86 H 02/09/24 07:53 Pulse Oximetry 94 02/09/24 07:53 Oxygen Delivery Method Room Air 02/09/24 07:53 Temperature 97.2 F L 02/09/24 07:53 Pulse Rate 57 L 02/09/24 12:32 Respiratory Rate 18 02/09/24 12:32 Blood Pressure 150/94 H 02/09/24 12:32 Pulse Oximetry 95 02/09/24 12:32 Oxygen Delivery Method Room Air 02/09/24 12:32 Medications Administered Medications: Discontinued Medications Generic Name Dose Route Start Last Admin Trade Name Freq PRN Reason Stop Dose Admin Lorazepam 1 mg 02/09/24 08:32 02/09/24 08:45 Lorazepam 2 Mg/Ml Inj IVP 02/09/24 08:33 1 mg ONCE ONE Administration Lorazepam 2 mg 02/09/24 11:07 02/09/24 11:16 Lorazepam 2 Mg/Ml Inj IVP 02/09/24 11:08 2 mg ONCE ONE Administration Meclizine HCl 25 mg 02/09/24 08:32 02/09/24 08:45 Meclizine Hcl 25 Mg Tablet PO 02/09/24 08:33 25 mg ONCE ONE Administration Medical Decision Making Lab Data Labs: Lab Results 02/09/24 Range/Units 08:55 WBC 3.95 L (4.50-11.00) K/uL RBC 4.28 L (4.30-5.90) m/uL Hgb 13.6 (13.5-17.5) gm/dL Hct 41.3 (37.0-53.0) % MCV 97 (80-100) fL MCH 32 (26-34) pg MCHC 33 (32-36) gm/dL RDW Coeff of Danielle 13.1 (11.5-15.5) % Plt Count 193 (140-440) K/uL Neut % (Auto) 51.3 (42.0-72.0) % Lymph % (Auto) 33.7 (20-44) % Haralson % (Auto) 10.4 (0.0-11.0) % Eos % (Auto) 2.3 (0.0-7.0) % Baso % (Auto) 1.3 (0.0-3.0) % Neut # (Auto) 2.00 (1.7-7.0) K/uL Lymph # (Auto) 1.30 (0.90-2.90) K/uL Haralson # (Auto) 0.40 (0.00-0.90) K/UL Eos # (Auto) 0.10 (0.00-0.50) K/uL Baso # (Auto) 0.10 (0.00-0.30) K/uL Abs Immat Gran (auto) 0.00 (0.00-0.30) K/uL Imm/Tot Granulo (auto) 1.0 % Sodium 136 (135-149) mmol/L Potassium 4.2 (3.6-5.1) mmol/L Chloride 106 (96-114) mmol/L Carbon Dioxide 22 (20-32) mmol/L Anion Gap 8 (7-15) mEq/L BUN 31 H (7-30) mg/dL Creatinine 1.0 (0.5-1.5) mg/dL Estimated Creat Clear 69.64 Estimated GFR 77 ml/min Glucose 108 (60-115) mg/dL Calcium 8.6 (8.4-10.6) mg/dL Discharge Plan Discharge Clinical Impression: Vertigo Patient Disposition: Home, Self-Care Condition: Improved Instructions: Vertigo (DC) Additional Instructions: Meclizine as prescribed. Symptoms usually resolve on their own over a few days, but physical therapy is an option if not. Please discuss further with your primary doctor if needed. Return for worsening or severe symptoms. Prescriptions: New meclizine 25 mg tablet 25 mg PO TID Qty: 15 0RF No Action amitriptyline 25 mg tablet 75 mg PO QHS bupropion HCl 100 mg tablet sustained-release 12 hr 100 mg PO QAM zaleplon 10 mg capsule 10 mg PO QHS aspirin 325 mg tablet,delayed release (DR/EC) PO BID Follow Up/Referrals: Norberto Choi MD [Primary Care Provider] - Stand Alone Forms: [facility] Info Instructions
[2024-02-09 08:58] LABS: Basophils Percent Auto 1.3 % (0.0-3.0); Eosinophils Percent Auto 2.3 % (0.0-7.0); Hematocrit 41.3 % (37.0-53.0); Hemoglobin* 13.6 gm/dL (13.5-17.5); Lymphocytes Percent Auto 33.7 % (20-44); Mean Corpuscular HGB Conc 33 gm/dL (32-36); Mean Corpuscular Hemoglobin 32 pg (26-34); Mean Corpuscular Volume 97 fL (80-100); Monocytes Percent Auto 10.4 % (0.0-11.0); Neutrophils Percent Auto 51.3 % (42.0-72.0); Platelet Count* 193 K/uL (140-440); RDW Coefficient of Variation % 13.1 % (11.5-15.5); Red Blood Count 4.28 m/uL (4.30-5.90); White Blood Count* 3.95 K/uL (4.50-11.00)
[2024-02-09 09:00] LABS: Slide Review Reflex No
[2024-02-09 09:11] LABS: Chloride* 106 mmol/L (96-114); Potassium* 4.2 mmol/L (3.6-5.1); Sodium* 136 mmol/L (135-149)
[2024-02-09 09:13] LABS: Est. Creatinine Clearance* 69.64; Estimated Glomerular Filt Rate 77 ml/min
[2024-02-09 09:14] LABS: Anion Gap 8 mEq/L (7-15); Blood Urea Nitrogen* 31 mg/dL (7-30); Calcium* 8.6 mg/dL (8.4-10.6); Carbon Dioxide* 22 mmol/L (20-32); Glucose* 108 mg/dL (60-115)
[2024-02-09] MEDS: LORazepam 2 MG/ML inj IVP (11:16)
--- NOTE | 2024-02-09 11:37 | CRLHL7_ITS ---
For Patients: As a result of the Century Cures Act, medical imaging exams and procedure reports are released immediately into your electronic medical record. You may view this report before your referring provider. If you have questions, please contact your health care provider. CLINICAL HISTORY: Vertigo. TECHNIQUE: Standard helical CT image acquisition through the head following the administration of intravenous contrast was performed. 3D and MIP reconstructions were performed at a separate workstation and permanently archived. COMPARISON: None available. FINDINGS: No intracranial proximal large vessel occlusion or flow-limiting luminal stenosis. No evidence of cerebral aneurysm. No findings to suggest an arterial-venous shunting lesion. The major dural venous sinuses and deep venous system are patent. IMPRESSION: No intracranial proximal large vessel occlusion, flow-limiting luminal stenosis, or cerebral aneurysm. Please note that all CT scans at this facility use dose modulation, iterative reconstruction, and/or weight-based dosing when appropriate to reduce radiation dose to as low as reasonably achievable. Dictated by Jarad Chang MD @ 02/09/2024 4:59:13 PM (Electronically Signed)
--- NOTE | 2024-02-09 11:37 | CRLHL7_ITS ---
For Patients: As a result of the Century Cures Act, medical imaging exams and procedure reports are released immediately into your electronic medical record. You may view this report before your referring provider. If you have questions, please contact your health care provider. CLINICAL HISTORY: Vertigo. TECHNIQUE: Standard helical CT image acquisition through the neck was performed after intravenous contrast bolus enhancement. 3D and MIP reconstructions were performed at a separate workstation and permanently archived. COMPARISON: None available. FINDINGS: The origins of the great vessels from the aortic arch are patent. The common carotid arteries are patent. No significant luminal stenoses of the proximal ICAs by NASCET criteria. The more distal cervical segments of the ICAs are patent. The origins and cervical segments of the vertebral arteries are patent. Multinodular thyroid gland. IMPRESSION: Patent cervical arterial vasculature without hemodynamically significant luminal stenosis. Please note that all CT scans at this facility use dose modulation, iterative reconstruction, and/or weight-based dosing when appropriate to reduce radiation dose to as low as reasonably achievable. Dictated by Jarad Chang MD @ 02/09/2024 4:56:37 PM (Electronically Signed)
== END 2024-02-09 15:02 | disposition home or self-care (01) ==
PROVIDERS: Emergency Provider Emergency Medicine; PCP Family Medicine
DX: R42 Dizziness and giddiness (principal); R26.89 Other abnormalities of gait and mobility
CPT/HCPCS: 36415; 70450; 70496; 70498; 70551; 80048; 85025; 93005; 96374; 96376; 99284; 99285; A9270; J2060; Q9967

== ENCOUNTER 2024-05-24 10:47 | Day surgery (SDC) | payer MEDICARE, BC, SELFPAY ==
[2024-05-24] VITALS (27 sets, daily range): BP systolic 100–138; BP diastolic 59–95; PULSE 47–76; RESP 12–20; TEMP 35.7–36.6; O2SAT 85–98; BMI 29.6
--- OUTSIDE RECORDS SUMMARY | 2024-05-24 10:57 | XMS_ITS | Clinical Summary ---
Author Organization [facility] Address [place], [place] [address] Care Team Providers Care Television Service Engineer Name Role Phone Norberto Choi MD Primary Care Provider [phone] Allergies Active Allergy Reactions Criticality Noted Date Comments Ciprofloxacin GI Upset,Vestibular Toxicity Medium 09/10 Dizziness Medications Medication Sig Dispensed Refills Start Date End Date Status polyethylene glycoL (MIRALAX) 17 gram/dose powderIndications: Other constipation Use 1 tsp daily 0 10/17/2021 Active buPROPion (WELLBUTRIN SR) 100 mg Sustained-Release tabletIndications: Dysthymia TAKE 1 TABLET EVERY MORNING 90 Tablet 1 12/08/2023 Active zaleplon (SONATA) 10 mg capsuleIndications :Other insomnia TAKE 1 CAPSULE AT BEDTIME IF NEEDED FOR SLEEP 90 Capsule 3 12/08/2023 Active amitriptyline (ELAVIL) 25 mg tabletIndications: Dysthymia,Other insomnia TAKE 3 TABLETS AT BEDTIME 270 Tablet 1 12/08/2023 Active aspirin 325 mg tabletIndications: History of TIA (transient ischemic attack),PFO (patent foramen ovale) Take 1 Tablet (325 mg) by mouth two times daily with meals. 05/11/2024 Active aspirin 325 mg tabletIndications: History of TIA (transient ischemic attack),PFO (patent foramen ovale) Take 2 Tablets (650 mg) by mouth once daily. 0 10/17/2021 05/11/2024 Discontinued (*Medication adjustment) Active Problems Problem Noted Date Diagnosed Date Status post right knee replacement 05/13/2023 Other insomnia 09/22/2018 Overview (10/28/2023): As of 10/28/2023 Adan reports he has been on Sonata for 10 years. If he has to go off this medication, we will taper him off it slowly. 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 [employer] PFO (patent foramen ovale) 09/22/2018 Depressive disorder 12/27/2007 Overview (05/13/2023): Depressive disorder, not elsewhere classified ([facility]) Encounters Date Type Department Care Team Description 05/11/2024 8:45 AM CDT Office Visit [facility] [address] [place] [address] Lex Harman, Preoperative Exam (05/24/24 left knee) 05/11/2024 Travel from Last 3 Months Immunizations Name Administration Dates Next Due AMB INFLUENZA IIV3 (AGE 65+ YRS) PF (Flu Clinic Only) 05/21/2018 AMB Influenza, IIV4 PF (=>6 mos Flulaval,Fluzone Fluarix)(Flu Clinic Only) 05/18/2019 Amb Influenza, Inactivated A IIV4 (Age 65+ Years) Preserv Free 04/25/2023,05/03/2020 COVID-19 vaccine (LIBCAST [place] 30mcg/0.3mL) 12YO+ BIVALENT PF, MDV 05/13/2022 COVID-19 vaccine (ThermoEnergy 30mcg/0.3mL) PF, MDV 05/04/2021,10/24/2020,10/03/2020 Hepatitis A (Adult) [...] 5 Philipp Brother 6 Armond Alive Father (Age 42) Brain canc er Mother Sister Marii Alive Social History Tobacco Use Types Packs/Day Years Used Date Smoking Tobacco: Never Smokeless Tobacco: Current Snuff Tobacco Cessation:Ready to Q uit: No; Counseling Given: Not Answered Alcohol Use Standard Drinks/Week Comments Yes 17 (1 standard drink = 0.6 oz pu re alcohol) 2-3 beers daily PHQ-2 Answer Date Recorded PHQ-2 TOTAL SCORE 0 10/28/2023 Social Connections Answer Date Recorded Frequency of Communication with Friends and Fami ly 0 05/11/2024 Alcohol Use Answer Date Recorded How often do you have a drink containing alcohol ? 4 10/28/2023 How many drinks containing a lcohol do you have on a typical day when you are drinking? 0 10/28/2023 How often do you have five or more drinks on one occasion? 0 10/28/2023 Financial Resource Strain Answer Date R ecorded Difficulty of Paying Living Expenses 3 05/11/2024 Difficulty of Paying Living Expenses Not on file 05/11/2024 Food Insecurity Answer Date Recorded Worried About Running Out of Food in the Last Ye ar 1 05/11/2024 Transportation Needs Answer Date Record ed Lack of Transportation (Medical) 1 05/11/2024 Housing Stability Answer Date Recorded Unable to Pay for Housing in the Last Year 1 05/11/2024 Sex and Gender Information Value Date Recorded Sex Assigned at Not on file Gender Identity Not on file Sexual Orientation Not on file Obstetrics History Last Filed Vital Signs Vital Sign Reading Time Taken Comments Blood Pressure 118/72 05/11/2024 8:56 AM CDT Pulse 70 05/11/2024 8:56 AM CDT Temperature 36.5 ??C (97.7 ??F) 03/06/2023 3:37 PM CD T Respiratory Rate 16 05/14/2023 12:55 PM CDT Oxygen Saturation 97% 05/11/2024 8:56 AM CDT Inhaled Oxygen Concentration - - Weight 96.3 kg (212 lb 6.4 oz) 05/11/2024 8:56 A M CDT Height 180.3 cm (5' 11) 05/11/2024 9:15 AM CDT Body Mass Index 29.62 05/11/2024 8:56 AM CDT Plan of Treatment Health Maintenance Due Date Last Done Comments Influenza for age 65+ 04/10/2024 05/02/2023 , [...] screening for ag e 18-79 Completed 09/27/2019 RSV vaccine for adults or Completed 05/02/2023 Tdap Completed 10/20/2023, 02/07/2013 COVID-19 vaccine series Completed 05/06/20 24, 05/20/2023, 05/13/2022, Additional history exists Procedures Procedure Name Priority Date/Time Associated Diagnosis Comments HEMOGLOBIN Routine 05/11/2024 9:39 AM CDT Preop general physical exam ANTI HCV Routine 09/27/2019 11:39 AM SOCIOLOGY RESEARCH ASSISTANT Need for hepatitis C screening test from Last 3 Months or Most Recently Relevant to Health Maintenance Results * HEMOGLOBIN (05/11/2024 9:39 AM CDT) HEMOGLOBIN 14.4 13.2 - 17.1 g/dL [facility] Blood BLOOD SPECIMEN / Unknown 05/11/2024 9:39 AM CDT 05/11/2024 9:40 AM CDT Lex Harman DO HEMATOLOGY [employer] [facility] [address] [place] [address], [facility] [address] [place] [address] * ANTI HCV (09/27/2019 11:39 AM SOCIOLOGY RESEARCH ASSISTANT) HEPATITIS C ANTIBODY Non-React heriberto Non-React heriberto 09/27/2019 6:18 PM SOCIOLOGY RESEARCH ASSISTANT [facility] Comment:Antibodies to HCV no t detected; does not exclude the possibility of exposure to HCV. Blood BLOOD SPECIMEN / Unknown Venipuncture / Unknown 09/27/2019 11:39 AM SOCIOLOGY RESEARCH ASSISTANT 09/27/2019 11:40 AM SOCIOLOGY RESEARCH ASSISTANT Rigo Mazariegos MD SEND OUTS [facility] [address] [place] [address], from Last 3 Months or Most Recently Relevant to Health Maintenance Care Teams Television Service Engineer Relationship Specialty Start Date End Date Norberto Choi MD [address] [place] [address] PCP - General Family Practice 10/24/22
[2024-05-24] MEDS: ACETAMINOPHEN 500 MG TABLET 1000 MG PO ×3 (11:30→23:37)
[2024-05-24] MEDS: OXYCODONE (CR) 10 MG TAB.ER.12H PO (11:30)
[2024-05-24] MEDS: CELECOXIB 200 MG CAPSULE PO (11:30)
[2024-05-24] MEDS: SODIUM CHLORIDE 0.9 % (FLUSH) 10 ML SYRINGE IVF (11:35)
[2024-05-24] MEDS: LACTATED RINGERS 500 ML 500 ML 100 ML IV (12:40)
[2024-05-24] MEDS: MIDAZOLAM HCL 1 MG/ML inj IVP (12:40)
[2024-05-24] MEDS: fentaNYL 100 MCG/2 ML inj IVP (12:40)
--- NOTE | 2024-05-24 12:42 | SUR.PREOP ---
TIME?OUT:?1238 PT/RN/MDA?VERIFICATION?OF?SURGICAL?SITE-left knee,?PROCEDURE-left total knee replacement,?AND?CONSENT OBTAINED?PRIOR?TO?INVASIVE?PROCEDURE.
[2024-05-24] MEDS: TRANEXAMIC ACID 100 MG/ML INJ 1000 MG IV (13:20)
[2024-05-24] MEDS: CEFAZOLIN 2 GM INJ IVP (13:20)
[2024-05-24] MEDS: LACTATED RINGERS 1000 ML 1,000 ML 100 ML IV (13:30)
--- NOTE | 2024-05-24 14:00 | W.ANESCHARGE ---
Anesthesia Charges Start Date/Time Anesthesia Start Date: 05/24/24 Anesthesia Start Time: 13:03 Stop Date/Time Anesthesia Stop Date: 05/24/24 Anesthesia Stop Time: 15:19 Summary Extremes of Age - Over 70 or under 1: MDA
--- NOTE | 2024-05-24 14:01 | P.NB_ITS ---
Nerve Block Nerve Block Time Seen by Provider: 12:42 Date Seen: 05/24/24 Type of block requested by surgeon for post-operative analgesia: femoral Side: left Time out performed: Yes Verification of patient name: Yes Verification of date of : Yes Site marking: site marked Name of person performing procedure: Chris Continuous monitoring Was continuous monitoring of O2 sat, B/P, child monitor, recorded every 15 minutes?: Yes Procedure Checklist: sterile prep, needles and gloves Ultrasound guided. Images saved: Yes Medications given in 5ml increments after negative aspiration: Marcaine %: 0.25 mL: 15 Needle gauge: 20 Precedex (mcg): 25 Patient tolerated procedure well: Yes Block Charges Block Charge (with Pro Fee): Femoral Nerve Use of Ultrasound Machine for Block: Yes- US Guidance/pain block
--- NOTE | 2024-05-24 14:01 | P.NB_ITS ---
Nerve Block Nerve Block Time Seen by Provider: 12:42 Date Seen: 05/24/24 Type of block requested by surgeon for post-operative analgesia: geniculars Side: left Time out performed: Yes Verification of patient name: Yes Verification of date of : Yes Site marking: site marked Name of person performing procedure: Chris Continuous monitoring Was continuous monitoring of O2 sat, B/P, cardiac nurse practitioner, recorded every 15 minutes?: Yes Procedure Checklist: sterile prep, needles and gloves Ultrasound guided. Images saved: Yes Medications given in 5ml increments after negative aspiration: Marcaine %: 0.25 mL: 9 Needle gauge: 25 Patient tolerated procedure well: Yes Block Charges Block Charge (with Pro Fee): Genicular Nerve Block
--- NOTE | 2024-05-24 14:40 | CRLHL7_ITS ---
For Patients: As a result of the Cures Act, medical imaging exams and procedure reports are released immediately into your electronic medical record. You may view this report before your referring provider. If you have questions, please contact your health care provider. Indication: Postop total knee arthroplasty Technique: Left knee 2 views. Comparison: Left knee radiographs 04/27/2024 Findings: Bones: Status post recent left total knee arthroplasty in appropriate alignment. Joint spaces: No joint effusion. Soft tissues: Subcutaneous emphysema about the anterior knee. Impression: Status post recent left total knee arthroplasty in appropriate alignment with expected postoperative subcutaneous emphysema. Dictated by Sheryl Harper MD @ 05/26/2024 4:08:27 PM (Electronically Signed)
--- NOTE | 2024-05-24 14:43 | P.ORPRC_ITS ---
Procedure Note Date of procedure: 05/24/24 Procedure: PREOPERATIVE DIAGNOSIS: Left knee osteoarthritis POSTOPERATIVE DIAGNOSIS: Left knee osteoarthritis NAME OF OPERATION: Left total knee arthroplasty SURGEON: Nacho Webster MD HELICOPTER ENGINEER: LORRIE Dawson ANESTHESIA: Spinal ESTIMATED BLOOD LOSS: 0 mL COMPLICATIONS: None SPECIMENS: None DRAINS: None PREOPERATIVE ANTIBIOTICS: Ancef 2 grams IMPLANTS: 1. J&J Attune # 9 posterior stabilized femur 2. # 10 fixed-bearing tibia 3. # 9 posterior stabilized, 5 mm fixed-bearing polyethylene 4. 41 patella INDICATIONS: The patient is a 78-year-old with a longstanding history of severe, unrelenting left knee pain secondary to end-stage (grade IV) left knee osteoarthritis. Despite appropriate nonoperative management, including activity modification, anti-inflammatories, [id number] pain medication, bracing, physical therapy, and injections they continue to have pain and disability. Operative intervention was offered. The risks, benefits and expected outcomes were discussed in detail. These included but were not limited to: Infection, bleeding, injury to blood vessel or nerve, venous thromboembolism. All questions were answered to their satisfaction. Use of an surgical services assistant was necessary throughout the case for patient positioning and safety, soft tissue retraction, and closure. PROCEDURE: Spinal anesthesia was administered. The patient was placed supine on the operating table. The surgical services assistant made sure the patient was positioned appropriately. The lower extremity was prepped and draped in the usual sterile fashion. The limb was exsanguinated with the Jorge bandage. The pneumatic tourniquet was inflated to 300 mmHg. A standard anterior incision was made with the knee in flexion. Subcutaneous dissection was sharply taken through fascial layer #1. Full-thickness medial and lateral flaps were elevated. The surgical services assistant retracted the soft tissues and protected them throughout the case. A standard subvastus approach was made. The patella was subluxed. The infrapatellar fat pad was preserved. The menisci and cruciate ligaments were sharply d?brided. Marginal osteophytes were d?brided with the rongeur. The drill was used to penetrate the femoral canal. The canal was aspirated and irrigated with pulse lavage. The intramedullary femoral guide was placed for a 5-degree valgus cut, removing 10 mm off the distal femur. The saw was used to make the cut. Whitesides line and the trans epicondylar axis were marked. The femoral sizing guide was pinned onto the distal femur. Three degrees of external rotation nicely parallels the transepicondylar axis. Pins were placed for posterior referencing. The four-in-one cutting guide was pinned onto the distal femur. The anterior, posterior, and chamfer cuts were made. The surgical services assistant protected the collateral ligaments. The box cutting guide was pinned. The box cuts were made. The boxed trial was placed and was an excellent fit. Drill holes for the lugs were made. Attention was then turned to the proximal tibia. The extramedullary tibial guide was placed for a neutral varus/valgus cut with 5 degrees of posterior slope, removing 0 mm based off the medial tibial surface. The surgical services assistant protected the collateral ligaments and the neurovascular bundle. The saw was used to make the cut. Trial components were placed. The knee was nicely balanced in both flexion and extension. The trial components were removed. The tray was placed in appropriate rotation, parallel to our tibial cutting pins. It was pinned by the surgical services assistant and the drill and the punch were used. The tray was removed. The punch was used again. We placed a bone plug in the femoral canal. Attention was then turned to the patella. [place] patellar thickness was 22 mm. The lobster claw resection guide was used with the 9.5 mm kerrie. The saw was used to make the cut. Drill holes were made by the surgical services assistant. The trial was placed and was an excellent fit. Cancellous surfaces were irrigated with pulse lavage and thoroughly dried by the surgical services assistant. We cemented the tibial component, then the femoral component. We impacted the 5 mm polyethylene onto the tibial tray. The knee was brought into full extension. We then cemented the patellar component. Excessive cement was removed. The cement was allowed to harden. The knee was taken through a range of motion and was found to be nicely balanced in both flexion and extension. The patella tracks centrally. The surgical services assistant did a three minute dilute Betadine solution soak. The surgical services assistant irrigated the wound with 3 liters of normal saline via pulse lavage. The surgical services assistant reapproximated the extensor mechanism with #1 Vicryl in an interrupted [id number] fashion. The surgical services assistant then ran the extensor mechanism with a #1 PDO Stratafix. The surgical services assistant closed the subcutaneous tissues with a 3-0 Stratafix and the skin with a running 3-0 Stratafix in a subcuticular fashion. Glue was used to seal the skin. The surgical services assistant placed a dry dressing. Sponge and needle counts were correct x2. The patient tolerated the procedure well. There were no apparent complications. They were carefully transferred to the hospital bed and taken to the postanesthesia care unit in satisfactory condition. PLAN: The patient will be mobilized with physical therapy. Aspirin will be used for DVT prophylaxis. They will be discharged to home once medically appropriate.
--- NOTE | 2024-05-24 15:15 | W.ANESCHARGE ---
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
[2024-05-24] MEDS: fentaNYL 100 MCG/2 ML inj 50 MCG IVP ×2 (15:20→15:30)
[2024-05-24] MEDS: HYDROmorphone 0.5 mg/0.5 ml inj IVP (16:47)
[2024-05-24] MEDS: OXYCODONE 5 MG TABLET PO ×2 (18:31→21:41)
--- NOTE | 2024-05-24 20:00 | PC.NURSE ---
Pt arrived on floor around 1600. Alert, oriented and vitally stable. Pt advanced to regular diet and tolerating well, denies nausea. Pain rating 9/10 from initially arriving on floor, prn dilaudid given. Pain improved to 7/10, prn oxy given, pt tolerates improvement. Pt up with staff and complained of dizziness. Pt has had episodes of incontinence throughout time on floor.
[2024-05-24] MEDS: CEFAZOLIN 2 GM in 0.9 % SODIUM CHLORIDE Mini-bag 100 ML IVPB (20:09)
--- NOTE | 2024-05-24 20:51 | P.IMCN_ITS ---
Date of Consult Patient: Louie Patient Consult date: 05/24/24 Requesting Physician: Orthopedics Primary Care Provider: Norberto Choi MD Consult Narrative Narrative: Adan Jackson is a 78 year old male admitted to the hospital for left knee arthroplasty. Procedure performed by Dr. Webster without complications. He requests consultation for medical management. Postoperatively he reports doing well though has some discomfort. His spinal block as of 0 largely worn off. He has no other concerns. Preoperatively was doing well. There were no significant issues identified in preop evaluation leading to perioperative concerns. Previously has had right knee arthroplasty and done well with that. He is chronically on aspirin 325 mg b.i.d. for history of a PFO and stroke. No previo us history of DVT, PE or AFib. Review of Systems Narrative: No recent illness or injury. [facility] Medical History (Updated 05/24/24 @ 21:06 by Sterling Mcdonough MD) Insomnia ?G47.00 - Insomnia, unspecified (ICD-10) Diverticulosis of large intestine without hemorrhage ?K57.30 - Diverticulosis of large intestine without perforation or abscess without bleeding (ICD-10) BPH (benign prostatic hyperplasia) ?N40.0 - Benign prostatic hyperplasia without lower urinary tract symptoms (ICD-10) TIA (transient ischemic attack) ?G45.9 - Transient cerebral ischemic attack, unspecified (ICD-10) Osteoarthritis of left knee ?M17.12 - Unilateral primary osteoarthritis, left knee (ICD-10) Spinal stenosis ?M48.00 - Spinal stenosis, site unspecified (ICD-10) Surgical History (Updated 05/24/24 @ 20:57 by Sterling Mcdonough MD) Status post left knee replacement ?Z96.652 - Presence of left artificial knee joint (ICD-10) Status post right rotator cuff repair (05/26/23) ?Z98.890 - Other specified postprocedural states (ICD-10) History of arthroscopy of both knees ?Z98.890 - Other specified postprocedural states (ICD-10) History of carpal tunnel surgery of right wrist ?Z98.890 - Other specified postprocedural states (ICD-10) History of back surgery (~2004) ?Z98.890 - Other specified postprocedural states (ICD-10) H/O hernia repair ?Z98.890 - Other specified postprocedural states (ICD-10) ?Z87.19 - Personal history of other diseases of the digestive system (ICD-10) Status post right knee replacement (03/12/21) ?Z96.651 - Presence of right artificial knee joint (ICD-10) Family History Mother Stroke Brother Stroke COPD (chronic obstructive pulmonary disease) Constantine Salter? syndrome Social History (Updated 05/24/24 @ 20:58 by Sterling Mcdonough MD) Narrative: He lives with his in [place]. He has 3 steps to get into his house but otherwise can live on 1 level. current chewing tobacco he does not smoke tobacco. He drinks 2-3 cans of beer daily. Reports no problems if he does not drink for a couple days. What is your current living situation?: I presently have a place to live In the past 12 months, utilities in danger of being shut off: no In past 12 months, lack of transportation kept you from medical appts, meetings, work, or getting things needed for daily living: no In the past 12 mos, have been you worried that your food would run out before you had money to buy more?: never true In the past 12 mos, the food you bought just didn't last and you didn't have money to buy more?: never true Smoking Status: Never smoker Do you use any of these nicotine containing products: None Second hand tobacco smoke exposure: No How often do you have a drink containing alcohol: 4 or more times a week Alcohol type: beer How many standard drinks containing alcohol do you have on a typical day: 1 or 2 How often do you have six or more drinks on one occasion: Never AUDIT-C Alcohol total score: 4 Non-prescribed substance use: denies use Caffeine: Yes (2 cups of coffee daily) How often does anyone, including family, friends and others, physically hurt you : never How often does anyone, including family, friends and others, insult or talk down to you: never How often does anyone, including family, friends and others, threaten you with harm: never How often does anyone, including family, friends and others, scream or curse at you: never service: No Meds Home Medications and Allergies Home Medications ?Medication ?Instructions ?Recorded ?Confirmed ?Type amitriptyline 25 mg tablet 75 mg PO HS 11/12/22 05/24/24 History aspirin 325 mg tablet,delayed 325 mg PO BID 11/12/22 05/23/24 History release bupropion HCl 100 mg tablet,12 hr 100 mg PO DAILY 11/12/22 05/24/24 History sustained-release zaleplon 10 mg capsule 10 mg PO HS PRN 11/12/22 05/24/24 History polyethylene glycol 3350 17 17 g PO DAILY 05/24/24 05/24/24 History gram/dose oral powder (Miralax) Allergies Allergy/AdvReac Type Severity Reaction Status Date / Time ciprofloxacin Allergy Unknown Dizziness Verified 05/24/24 11:19 codeine Allergy Verified 05/24/24 11:19 Exam Narrative: Exam Narrative: He is alert and appears in no distress. He gives his own history. Oropharynx is normal. Neck is supple out mass or adenopathy. Respirations are clear to auscultation. Cardiovascular: S1, S2, regular rate and rhythm. Abdomen: Bowel sounds active. Abdomen is soft without tenderness or mass. Extremities with intact pulses, intact sensation, intact strength and motion in his ankles. Const: Vital Signs, click to edit/add: Vital Signs - 24 hr 05/24/24 11:17 05/24/24 12:35 05/24/24 12:40 Temperature 97.1 F L Pulse Rate 76 64 62 Pulse Rate [Left P ulse Oximeter] Respiratory Rate 16 16 12 Blood Pressure 111/77 127/72 120/87 Blood Pressure [Ri ght Arm] Pulse Oximetry 93 92 94 Oxygen Delivery Me thod Room Air Nasal Cannula Nasal Cannula Oxygen Flow Rate 3 3 05/24/24 12:45 05/24/24 12:50 05/24/24 15:15 Temperature 97 F L Pulse Rate 63 56 L 67 Pulse Rate [Left P ulse Oximeter] Respiratory Rate 12 12 14 Blood Pressure 116/74 110/69 100/70 Blood Pressure [Ri ght Arm] Pulse Oximetry 90 93 93 Oxygen Delivery Me thod Nasal Cannula Nasal Cannula Room Air Oxygen Flow Rate 3 3 05/24/24 15:20 05/24/24 15:25 05/24/24 15:30 Temperature Pulse Rate 60 60 60 Pulse Rate [Left P ulse Oximeter] Respiratory Rate 14 14 14 Blood Pressure 101/63 101/65 100/65 Blood Pressure [Ri ght Arm] Pulse Oximetry 95 95 95 Oxygen Delivery Me thod Room Air Room Air Room Air Oxygen Flow Rate 05/24/24 15:35 05/24/24 15:40 05/24/24 15:45 Temperature 97 F L Pulse Rate 55 L 60 52 L Pulse Rate [Left P ulse Oximeter] Respiratory Rate 14 14 14 Blood Pressure 102/68 101/60 100/59 L Blood Pressure [Ri ght Arm] Pulse Oximetry 93 95 94 Oxygen Delivery Me thod Room Air Room Air Room Air Oxygen Flow Rate 05/24/24 16:00 05/24/24 16:00 05/24/24 16:15 Temperature 96.8 F L 96.8 F L 96.8 F L Pulse Rate 52 L 51 L Pulse Rate [Left P ulse Oximeter] 47 L Respiratory Rate 18 18 18 Blood Pressure 100/59 L 123/69 Blood Pressure [Ri ght Arm] 125/95 H Pulse Oximetry 94 94 96 Oxygen Delivery Me thod Room Air Room Air Room Air Oxygen Flow Rate 05/24/24 16:30 05/24/24 16:45 05/24/24 17:00 Temperature 96.2 F L 96.7 F L 96.7 F L Pulse Rate 50 L 52 L 58 L Pulse Rate [Left P ulse Oximeter] Respiratory Rate 18 18 18 Blood Pressure 129/76 122/81 138/77 Blood Pressure [Ri ght Arm] Pulse Oximetry 98 94 92 Oxygen Delivery Me thod Room Air Room Air Room Air Oxygen Flow Rate 05/24/24 17:30 05/24/24 18:00 05/24/24 20:03 Temperature 96.7 F L 96.7 F L 96.8 F L Pulse Rate 63 76 Pulse Rate [Left P ulse Oximeter] 75 Respiratory Rate 18 18 20 Blood Pressure 136/88 121/68 Blood Pressure [Ri ght Arm] 123/72 Pulse Oximetry 94 90 93 Oxygen Delivery Me thod Room Air Room Air Nasal Cannula Oxygen Flow Rate 0 1.0 Documenting provider has reviewed patient's vital signs: yes Assessment and Plan Assessment and plan (1) Status post left knee replacement: Problem comment: Dr. Webster, 05/24/2024, no complications Status: Acute (2) Insomnia: Problem comment: He takes sonata 10 mg and amitriptyline 75 mg every night to help with sleep. He is quite anxious about having trouble sleeping. Status: Acute (3) Postoperative hypoxia: Problem comment: Supplemental oxygen and monitor. Further evaluation if not resolved tomorrow. Status: Acute Plan Routine physical therapy, pain management and monitoring for complications of surgery including hypoxia. Caution with pain medicines and sedation related to postoperative hypoxia. Anticipate discharge to home on aspirin 325 b.i.d. as he takes chronically at home for stroke prophylaxis as well. Total Time Spent Total Time Spent: Total time spent today is 40 minutes in coordination of care discussing with patient and other providers management of postoperative care
[2024-05-24] MEDS: AMITRIPTYLINE 25 MG TABLET 75 MG PO (21:40)
[2024-05-24] MEDS: ZOLPIDEM 5 MG TABLET 10 MG PO (21:40)
[2024-05-24] MEDS: SENNOSIDES 1 TAB TABLET 2 TAB PO (21:40)
[2024-05-24] MEDS: ASPIRIN 81 MG TABLET EC PO (21:41)
[2024-05-25] MEDS: CEFAZOLIN 2 GM in 0.9 % SODIUM CHLORIDE Mini-bag 100 ML IVPB (04:29)
[2024-05-25 04:34] VITALS: BP 137/70; PULSE 68; RESP 20; TEMP 35.9; O2SAT 94
[2024-05-25] MEDS: OXYCODONE 5 MG TABLET PO ×3 (04:38→11:06)
[2024-05-25] MEDS: ACETAMINOPHEN 500 MG TABLET 1000 MG PO (06:12)
[2024-05-25 06:30] LABS: Basophils Absolute Auto 0.04 K/uL (0.00-0.30); Basophils Percent Auto 0.8 % (0.0-3.0); Eosinophils Absolute Auto 0.15 K/uL (0.00-0.50); Eosinophils Percent Auto 3.2 % (0.0-7.0); Hematocrit 37.3 % (37.0-53.0); Hemoglobin* 12.1 gm/dL (13.5-17.5); Immature Granulocytes Abs Auto 0.01 K/uL (0.00-0.30); Immature Granulocytes Pct Auto 0.2 %; Lymphocytes Percent Auto 19.2 % (20-44); Mean Corpuscular HGB Conc 32 gm/dL (32-36); Mean Corpuscular Hemoglobin 32 pg (26-34); Mean Corpuscular Volume 98 fL (80-100); Monocytes Percent Auto 13.3 % (0.0-11.0); Neutrophils Absolute Auto 3.01 K/uL (1.7-7.0); Neutrophils Percent Auto 63.3 % (42.0-72.0); Platelet Count* 157 K/uL (140-440); RDW Coefficient of Variation % 13.6 % (11.5-15.5); White Blood Count* 4.75 K/uL (4.50-11.00)
--- NOTE | 2024-05-25 06:32 | PC.NURSE ---
[id number]: Patient cooperative with cares. Pain managed with PRN medications, active ice, and repositioning. 2Lt NC placed at end of previous shift d/t sats 85%. Patient weaned off O2 during noc and now on RA and maintaining sats >90%. A1/walker/GB. Tolerates movement well. Denies N/V. Eating and voiding.
[2024-05-25 06:34] LABS: Slide Review Reflex No
[2024-05-25 06:47] LABS: Potassium* 4.1 mmol/L (3.6-5.1); Sodium* 133 mmol/L (135-149)
[2024-05-25 06:50] LABS: Blood Urea Nitrogen* 24 mg/dL (7-30); Creatinine* 0.8 mg/dL (0.5-1.5); Estimated Glomerular Filt Rate 90 ml/min
[2024-05-25 06:54] LABS: INR 1.01 (0.91-1.10); Prothrombin Time 13.9 Seconds
[2024-05-25 07:00] VITALS: BP 121/65; PULSE 74; RESP 20; TEMP 36.4; O2SAT 94; O2SAT 95
[2024-05-25] MEDS: ASPIRIN EC 325 MG TABLET PO (08:52)
[2024-05-25] MEDS: buPROPion HCL 100 MG TAB.SR.12H PO (08:52)
[2024-05-25] MEDS: SENNOSIDES 1 TAB TABLET 2 TAB PO (08:52)
--- NOTE | 2024-05-25 11:10 | PM.ORPN ---
Subjective Subjective Time Seen by Provider: 07:30 Date Seen: 05/25/24 Principal diagnosis: Status post left knee replacement Interval history: Adan is comfortable and would like to go for a walk. His knee is swollen. He plans to discharge to home. Ortho Exam Narrative Exam Narrative: Alert and oriented x3. Patient is in no acute distress. Converses without labored breathing. Hearing is grossly intact. Ambulates with a walker. Examination of the left knee shows the dressing is intact. No erythema or warmth or sign of infection. Large hematoma anterior knee. Calves are soft and nontender. He ambulates well with a walker. Able to straight leg raise. CMS intact left lower extremity. Const Vital Signs, click to edit/add: Vital Signs - 24 hr 05/24/24 11:17 05/24/24 12:35 05/24/24 12:40 Temperature 97.1 F L Pulse Rate 76 64 62 Pulse Rate [Left Pulse Oximeter] Respiratory Rate 16 16 12 Blood Pressure 111/77 127/72 120/87 Blood Pressure [Right Arm] Pulse Oximetry 93 92 94 Oxygen Delivery Method Room Air Nasal Cannula Nasal Cannula Oxygen Flow Rate 3 3 05/24/24 12:45 05/24/24 12:50 05/24/24 15:15 Temperature 97 F L Pulse Rate 63 56 L 67 Pulse Rate [Left Pulse Oximeter] Respiratory Rate 12 12 14 Blood Pressure 116/74 110/69 100/70 Blood Pressure [Right Arm] Pulse Oximetry 90 93 93 Oxygen Delivery Method Nasal Cannula Nasal Cannula Room Air Oxygen Flow Rate 3 3 05/24/24 15:20 05/24/24 15:25 05/24/24 15:30 Temperature Pulse Rate 60 60 60 Pulse Rate [Left Pulse Oximeter] Respiratory Rate 14 14 14 Blood Pressure 101/63 101/65 100/65 Blood Pressure [Right Arm] Pulse Oximetry 95 95 95 Oxygen Delivery Method Room Air Room Air Room Air Oxygen Flow Rate 05/24/24 15:35 05/24/24 15:40 05/24/24 15:45 Temperature 97 F L Pulse Rate 55 L 60 52 L Pulse Rate [Left Pulse Oximeter] Respiratory Rate 14 14 14 Blood Pressure 102/68 101/60 100/59 L Blood Pressure [Right Arm] Pulse Oximetry 93 95 94 Oxygen Delivery Method Room Air Room Air Room Air Oxygen Flow Rate 05/24/24 16:00 05/24/24 16:00 05/24/24 16:15 Temperature 96.8 F L 96.8 F L 96.8 F L Pulse Rate 52 L 51 L Pulse Rate [Left Pulse Oximeter] 47 L Respiratory Rate 18 18 18 Blood Pressure 100/59 L 123/69 Blood Pressure [Right Arm] 125/95 H Pulse Oximetry 94 94 96 Oxygen Delivery Method Room Air Room Air Room Air Oxygen Flow Rate 05/24/24 16:30 05/24/24 16:45 05/24/24 17:00 Temperature 96.2 F L 96.7 F L 96.7 F L Pulse Rate 50 L 52 L 58 L Pulse Rate [Left Pulse Oximeter] Respiratory Rate 18 18 18 Blood Pressure 129/76 122/81 138/77 Blood Pressure [Right Arm] Pulse Oximetry 98 94 92 Oxygen Delivery Method Room Air Room Air Room Air Oxygen Flow Rate 05/24/24 17:30 05/24/24 18:00 05/24/24 18:55 Temperature 96.7 F L 96.7 F L Pulse Rate 63 76 Pulse Rate [Left Pulse Oximeter] Respiratory Rate 18 18 Blood Pressure 136/88 121/68 Blood Pressure [Right Arm] Pulse Oximetry 94 90 85 L Oxygen Delivery Method Room Air Room Air Room Air Oxygen Flow Rate 0 05/24/24 18:55 05/24/24 19:00 05/24/24 20:00 Temperature 96.8 F L Pulse Rate 58 L 75 Pulse Rate [Left Pulse Oximeter] Respiratory Rate 18 20 Blood Pressure 115/64 123/72 Blood Pressure [Right Arm] Pulse Oximetry 85 L 92 93 Oxygen Delivery Method Nasal Cannula Nasal Cannula Oxygen Flow Rate 2.0 2.0 05/24/24 20:03 05/24/24 21:00 05/24/24 22:00 Temperature 96.8 F L 97.8 F Pulse Rate 63 66 Pulse Rate [Left Pulse Oximeter] 75 Respiratory Rate 20 18 20 Blood Pressure 137/73 101/70 Blood Pressure [Right Arm] 123/72 Pulse Oximetry 93 92 93 Oxygen Delivery Method Nasal Cannula Nasal Cannula Nasal Cannula Oxygen Flow Rate 2.0 2.0 2.0 05/24/24 22:18 05/24/24 22:20 05/25/24 04:34 Temperature 97.8 F 96.6 F L Pulse Rate Pulse Rate [Left Pulse Oximeter] 66 68 Respiratory Rate 20 20 20 Blood Pressure Blood Pressure [Right Arm] 101/70 137/70 Pulse Oximetry 93 93 94 Oxygen Delivery Method Nasal Cannula Nasal Cannula Room Air Oxygen Flow Rate 2.0 2.0 05/25/24 07:00 05/25/24 07:00 05/25/24 07:00 Temperature 97.5 F L Pulse Rate Pulse Rate [Left Pulse Oximeter] 74 Respiratory Rate 20 20 Blood Pressure Blood Pressure [Right Arm] 121/65 Pulse Oximetry 94 95 Oxygen Delivery Method Room Air Room Air Oxygen Flow Rate Assessment and Plan Assessment and plan (1) Hematoma: Status: Acute Assessment and Plan: Postoperative hematoma. Delvis bandage and as needed or swell. Hematoma will resolve in time. If this is very uncomfortable at postop appointment, it can be aspirated. (2) Status post left knee replacement: Problem details: Dr. Webster, 05/24/2024, no complications Status: Acute Assessment and Plan: Plan for discharge is today to home if they meet discharge criteria. DVT prophylaxis includes aspirin 325 mg twice daily per his usual protocol, Compression stockings as needed for swelling. Delvis bandage about the knee for swelling as needed. Frequent ambulation, every hour throughout the day. Remove dressing in 1 week. Observe wound and phone Orthopedics with any questions or concerns Return to clinic in 1 week for a wound check Return to clinic in 6 weeks with surgeon Minimize narcotic use. Wean off and discontinue soon as possible. Activities as tolerated. No strenuous activity. Outpatient physical therapy as scheduled. Ice and elevate the operative extremity. No restriction on ice.
== END 2024-05-25 11:42 | disposition home or self-care (01) ==
LOC: OR 10:49 → MEDSURG 10:58
PROVIDERS: PCP Family Medicine; Visit Provider Orthopaedic Surgery
PROC: (CPT 27447; principal; 2024-05-24 12:45)
DX: M17.12 Unilateral primary osteoarthritis, left knee (principal); G89.18 Other acute postprocedural pain; R09.02 Hypoxemia; G47.00 Insomnia, unspecified; N40.0 Benign prostatic hyperplasia without lower urinary tract symptoms; Z86.73 Personal history of transient ischemic attack (TIA), and cerebral infarction without residual deficits; L76.32 Postprocedural hematoma of skin and subcutaneous tissue following other procedure
CPT/HCPCS: 27447; 01402; 36415; 64447; 64454; 73560; 76942; 82565; 84132; 84295; 84520; 85025; 85610; 97110; 97116; 97162; 97165; 97535; 99100; A9270; C1776; J0690; J1171; J2250; J2405; J2704; J3010; J7120

== ENCOUNTER 2024-07-14 09:30 | Outpatient (RCR) | payer MEDICARE, BC, SELFPAY ==
--- NOTE | 2024-05-19 15:34 | PT.OPEX ---
PT [facility] Outpatient Eval PT [facility] Outpatient Eval Start: 05/19/24 10:08 Freq: Status: Active Protocol: Document 05/19/24 14:45 HLA (Rec: 05/19/24 15:28 HLA [id number]) E-signed By Huyen Yeboah, PT, DPT Physical Therapy Outpatient Evaluation Insurance Information Recert Due Date 08/16/24 Insurance Name Medicare B,Blue Cross/Blue Shield Medical Diagnosis L TKA Treating Diagnosis pain L knee, difficulty amb on stairs Referring MD Webster/Tayler Subjective Preferred Name Rodri Subjective Pt had R TKA, RTC repair with good results, now with pain and edema L knee. Date of Last Physician Visit 04/27/24 Date of Surgery (If applicable) 05/24/24 Current Work Status Retired Precautions Weight Bearing Status Weight Bear as Tolerated Therapy Limitations/Systems Review Not Limited Objective Range of Motion L knee 0-100 degrees flex, edematous otherwise WNL UES/ LES Strength good strength UEs/LES Swelling edema L knee Balance & Gait Gt stable level surfaces, balance intact, no concerns. Pain on stairs, recommended step to pattern for pain reduction L knee Sensation/Reflexes intact Assessment Assessment/Impression Rodri is a 78 year old male who underwent R TKA 2020 and R RTC repair 2022. He has PMHx of OA, spinal stenosis and TIAs. He is undergoing an elective L TKA on 05/24/[address] Webster. Pt is ind at baseline, amb no device, drives. He lives with his spouse in a 1 level home, 2 step entry-no railing but a cabinet he can pull up on. Pt presents with good strength UES/LEs ROM WNL except L knee 5-100 degrees with some edema present. Pt was instructed today inTKA ex program (quad sets, ham sets, ankle pumps, heel slides, SAQ, SLR, seated knee flex/ext and hamstring stretches) per protocol to be practiced pre-operatively and for improved learning post- operatively. Pt was instructed in hospital post-op progression in PT, safety, fall prevention. Pt was instructed in positioning in chair, bed, transfer safety, gt safety with walker, stairs, use of [employer] ice machine , car transfers and outpatient therapy progression. He has a ww and a cane for home use. Pt to return to [facility] after his surgery. He does anticipate same day surgery. Primary Functional Limitations hx spinal stenosis, no limitations Plan of Care Rehabilitation Potential Excellent Physical Therapy Goals 1. Within this session: Pt will verbalize understanding of pre-op/post-op safety, mobility and exercises with home program issued and pt returning for ongoing therapy after TKA replacement. MET Within 10-12 weeks: 1. Pt will have knee AROM 0- 120 degrees for transfers, ADLs, and stairs independence. 2. Pt will amb 20 min with se cane or no device as indicated, safely and independently for community and household ambulation. 3. 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 4. Pt will ascend/descend 13 stairs with railing independently for community mobility. Coordination/Communication With Patient Caregiver Treatment Plan/Direct Interventions Gait Training,Ice/Cold/ Vasopneumatic,Joint Mobilization,Manual Therapy, Neuromuscular Re-ed,Self-Care/ Home Management,Therapeutic Activities,Therapeutic Exercises Patient Will Be Discharged From Therapy Completion of LTG(s),Skills Plateau,Independent w/HEP, Independently Progressing Evaluation Billing Untimed Code Treatment Minutes 10 PT Eval No Charge No Complexity Low Certification Information Initial Certification Date 05/19/24 Ending Certification Date 08/16/24 Provider Signature Required Yes Provider Signature Shows Agreement With POC & Medical Necessity Physician NPI Number Write NPI# Here Physician Comment/Change : Physician Signature & Date Requested Please Sign/Date Here
== END 2024-11-11 23:59 | disposition home or self-care (01) ==
PROVIDERS: PCP Family Medicine; Visit Provider Physician Assistant
DX: M17.12 Unilateral primary osteoarthritis, left knee (principal); Z96.652 Presence of left artificial knee joint; M25.562 Pain in left knee; R53.1 Weakness; R26.2 Difficulty in walking, not elsewhere classified; Z51.89 Encounter for other specified aftercare
CPT/HCPCS: 97110; 97161; 97164